=== PATIENT | male | born 1950 | race Caucasian/White ===

== ENCOUNTER 2022-09-16 10:02 | Outpatient (REF) | payer MEDICARE, MEDICAID, SELFPAY ==
[2022-09-16 14:34] LABS: MANUAL DIFF FLAG NO
[2022-09-16 14:39] LABS: Basophils Percent Auto 0.7 % (0-2); Eosinophils Absolute Auto 0.2 X10*3/uL (0.0-0.4); Eosinophils Percent Auto 3.2 % (0-4); Hematocrit 45.1 % (42.0-52.0); Hemoglobin 14.7 g/dl (14.0-18.0); Imm Gran Abs Auto 0.01 X10*3/uL (0.00-0.03); Imm Gran Pct Auto 0.2 % (0.0-0.4); Lymphocytes Absolute Auto 1.6 X10*3/uL (1.2-4.9); Lymphocytes Percent Auto 26.6 % (20-40); Mean Corpuscular HGB Conc 32.6 g/dl (31.0-36.0); Mean Corpuscular Hemoglobin 28.9 pg (27.0-33.0); Mean Corpuscular Volume 88.8 fL (80.0-98.0); Mean Platelet Volume 10.9 fL (9.4-12.4); Monocytes Absolute Auto 0.5 X10*3/uL (0.1-1.2); Monocytes Percent Auto 8.4 % (2-11); Neutrophils Absolute Auto 3.6 x10*3/uL (2.0-8.3); Neutrophils Percent Auto 60.9 % (45-73); Platelet Count 223 X10*3/uL (160-400); Red Blood Count 5.08 X10*6/uL (4.60-5.80); Red Cell Distribution Width 12.6 % (11.0-16.0); White Blood Count 5.9 X10*3/uL (4.8-10.8)
[2022-09-16 15:19] LABS: Anion Gap 14 (12-20); Blood Urea Nitrogen 16 mg/dL (9-16); Calcium 9.3 mg/dL (8.4-10.2); Carbon Dioxide 25 mmol/L (22-29); Chloride 105 mmol/L (96-108); Estimated Glomerular Filt Rate 55; Glucose Fasting 80 mg/dL (60-99); Potassium 4.6 mmol/L (3.3-5.1); Sodium 139 mmol/L (135-145)
[2022-09-16 15:54] LABS: Prostate Specific Antigen 0.45 ng/mL (<0.05-4.0)
== END 2022-09-16 10:03 | disposition home or self-care (01) ==
LOC: HO.CHCLDS 10:02
PROVIDERS: Internal Medicine; Visit Provider Internal Medicine
DX: Z12.5 Encounter for screening for malignant neoplasm of prostate (principal); N52.1 Erectile dysfunction due to diseases classified elsewhere; I10 Essential (primary) hypertension
CPT/HCPCS: 36415; 80048; 84153; 85025

== ENCOUNTER 2023-02-12 12:16 | Outpatient (REF) | payer MEDICARE, MEDICAID, SELFPAY ==
[2023-02-12 14:45] LABS: Appearance Urine Clear; Color Urine Yellow; Glucose Urine UA Negative (Negative); Leukocyte Esterase Urine Negative (Negative); Nitrite Urine Negative (Negative); PH 6.5 (5.0-9.0); Specific Gravity - Urine 1.015 (1.005-1.025); Urine Blood Negative (Negative); Urine Ketones Negative (Negative); Urine Protein Negative (Neg-Trace)
== END 2023-02-12 12:17 | disposition home or self-care (01) ==
LOC: CF 12:16
PROVIDERS: Visit Provider Internal Medicine
DX: N39.498 Other specified urinary incontinence (principal)
CPT/HCPCS: 81003

== ENCOUNTER 2023-05-20 09:18 | Outpatient (REF) | payer MEDICARE, MEDICAID, SELFPAY ==
[2023-05-20 13:29] LABS: Alanine Aminotransferase 27 U/L (0-40); Albumin Level 4.2 g/dL (3.5-5.0); Alkaline Phosphatase 75 U/L (39-117); Anion Gap 12 (12-20); Aspartate Amino Transferase 26 U/L (5-37); Bilirubin Direct 0.2 mg/dL (0.0-0.5); Bilirubin Total 0.6 mg/dL (0.0-1.0); Blood Urea Nitrogen 19 mg/dL (9-16); Calcium 9.3 mg/dL (8.4-10.2); Carbon Dioxide 27 mmol/L (22-29); Chloride 106 mmol/L (96-108); Cholesterol 192 mg/dL (<200); Estimated Glomerular Filt Rate 58; Glucose Random 102 mg/dL (60-115); HDL Cholesterol 51 mg/dL (>40); LDL Cholesterol Calculated 110 mg/dL (<100); Potassium 4.5 mmol/L (3.3-5.1); Sodium 140 mmol/L (135-145); Triglycerides 157 mg/dL (<150)
[2023-05-20 13:45] LABS: TSH reflex Free T4 2.01 uIU/mL (0.32-4.0)
[2023-05-21 08:28] LABS: ~HepC Num1 0.08 S/CO (0.00-0.79); ~Hepatitis C Antibody Nonreactive (Nonreactive)
== END 2023-05-20 09:19 | disposition home or self-care (01) ==
LOC: HO.CHCLDS 09:18
PROVIDERS: Visit Provider Internal Medicine
DX: I10 Essential (primary) hypertension (principal); M15.8 Other polyosteoarthritis; E78.49 Other hyperlipidemia
CPT/HCPCS: 36415; 80048; 80061; 80076; 84443; 86803

== ENCOUNTER 2023-06-16 11:43 | Outpatient (REF) | payer MEDICARE, MEDICAID, SELFPAY ==
[2023-06-16 14:28] LABS: MANUAL DIFF FLAG NO
[2023-06-16 14:41] LABS: Basophils Percent Auto 0.6 % (0-2); Eosinophils Absolute Auto 0.1 X10*3/uL (0.0-0.4); Eosinophils Percent Auto 2.8 % (0-4); Hematocrit 36.8 % (42.0-52.0); Hemoglobin 12.5 g/dl (14.0-18.0); Imm Gran Abs Auto 0.02 X10*3/uL (0.00-0.03); Imm Gran Pct Auto 0.4 % (0.0-0.4); Lymphocytes Absolute Auto 1.7 X10*3/uL (1.2-4.9); Lymphocytes Percent Auto 34.9 % (20-40); Mean Corpuscular Hemoglobin 29.9 pg (27.0-33.0); Mean Platelet Volume 10.6 fL (9.4-12.4); Monocytes Absolute Auto 0.5 X10*3/uL (0.1-1.2); Monocytes Percent Auto 9.5 % (2-11); Neutrophils Absolute Auto 2.6 x10*3/uL (2.0-8.3); Neutrophils Percent Auto 51.8 % (45-73); Platelet Count 197 X10*3/uL (160-400); Red Blood Count 4.18 X10*6/uL (4.60-5.80); Red Cell Distribution Width 12.3 % (11.0-16.0)
[2023-06-16 14:50] LABS: INTERNATIONAL NORM RATIO 0.9 (0.9-1.1); Prothrombin Time 10.4 SEC (11.1-13.3)
[2023-06-16 14:53] LABS: Partial Thromboplastin Time 26.5 SEC (26.0-36.8)
[2023-06-16 16:48] LABS: Anion Gap 12 (12-20); Blood Urea Nitrogen 17 mg/dL (9-16); Calcium 9.2 mg/dL (8.4-10.2); Carbon Dioxide 25 mmol/L (22-29); Chloride 106 mmol/L (96-108); Estimated Glomerular Filt Rate > 60; Glucose Random 100 mg/dL (60-115); Potassium 4.4 mmol/L (3.3-5.1); Sodium 139 mmol/L (135-145)
[2023-06-16 16:50] LABS: TSH reflex Free T4 1.09 uIU/mL (0.32-4.0)
== END 2023-06-16 11:44 | disposition home or self-care (01) ==
LOC: HO.CHCLDS 11:43
PROVIDERS: Visit Provider Internal Medicine
DX: Z01.818 Encounter for other preprocedural examination (principal); I10 Essential (primary) hypertension
CPT/HCPCS: 36415; 80048; 84443; 85025; 85610; 85730

== ENCOUNTER 2023-12-01 11:21 | Outpatient (REF) | payer MEDICARE, MEDICAID, SELFPAY ==
[2023-12-01 14:23] LABS: MANUAL DIFF FLAG NO
[2023-12-01 14:32] LABS: Basophils Percent Auto 0.6 % (0-2); Eosinophils Absolute Auto 0.1 X10*3/uL (0.0-0.4); Eosinophils Percent Auto 1.9 % (0-4); Hematocrit 39.6 % (42.0-52.0); Imm Gran Abs Auto 0.02 X10*3/uL (0.00-0.03); Imm Gran Pct Auto 0.4 % (0.0-0.4); Lymphocytes Absolute Auto 1.2 X10*3/uL (1.2-4.9); Lymphocytes Percent Auto 23.2 % (20-40); Mean Corpuscular HGB Conc 32.8 g/dl (31.0-36.0); Mean Corpuscular Hemoglobin 28.6 pg (27.0-33.0); Mean Platelet Volume 10.9 fL (9.4-12.4); Monocytes Absolute Auto 0.4 X10*3/uL (0.1-1.2); Monocytes Percent Auto 7.2 % (2-11); Neutrophils Absolute Auto 3.5 x10*3/uL (2.0-8.3); Neutrophils Percent Auto 66.7 % (45-73); Platelet Count 216 X10*3/uL (160-400); Red Blood Count 4.55 X10*6/uL (4.60-5.80); Red Cell Distribution Width 12.8 % (11.0-16.0); White Blood Count 5.3 X10*3/uL (4.8-10.8)
[2023-12-01 15:20] LABS: Prostate Specific Antigen 0.22 ng/mL (<0.05-4.0)
[2023-12-06 15:29] LABS: Testosterone, Total 171 ng/dL (250-1100)
== END 2023-12-01 11:22 | disposition home or self-care (01) ==
LOC: HO.CHCLDS 11:21
PROVIDERS: Visit Provider Internal Medicine
DX: Z12.5 Encounter for screening for malignant neoplasm of prostate (principal); M70.62 Trochanteric bursitis, left hip; N52.1 Erectile dysfunction due to diseases classified elsewhere
CPT/HCPCS: 36415; 84153; 84403; 85025

== ENCOUNTER 2024-03-17 11:04 | Outpatient (REF) | payer MEDICARE, MEDICAID, SELFPAY ==
[2024-03-21 18:23] LABS: Testosterone, Total 334 ng/dL (250-1100)
== END 2024-03-17 11:05 | disposition home or self-care (01) ==
LOC: HO.CHCLDS 11:04
PROVIDERS: Visit Provider Internal Medicine
DX: N52.9 Male erectile dysfunction, unspecified (principal); N52.1 Erectile dysfunction due to diseases classified elsewhere
CPT/HCPCS: 36415; 84403

== ENCOUNTER 2024-04-01 09:24 | Outpatient (REF) | payer MEDICARE, MEDICAID, SELFPAY ==
--- OUTSIDE RECORDS SUMMARY | 2024-04-01 09:51 | XMS_ITS | Encounter Summary ---
Author Organization [employer] Address [address] [place] [address] Care Team Providers Care Sheet Tailer Name Role Phone Camille Patel MD Primary Care Provider +1- [phone] Reason for Visit * Reason Onset Date Comments requesting a call 09/12/2022 Encounter Details Date Type Department Care Team ([facility] Contact Info) Description 09/12/2022 Telephone [facility] CHC MED & PEDS [address] [place] [address] Camille Patel MD [address] [place] [address] requesting a call Social History Tobacco Use Types Packs/Day Years Used Date Smoking Tobacco: Never Passive Smoke Exposure: Never Smokeless Tobacco: Never Alcohol Use Standard Drinks/Week Comments Defer 0 (1 standard drink = 0.6 oz pur e alcohol) Depression Answer Date Recorded Patient Health Questionnaire-9 Score 4 04/01/2022 Depression Answer Date Recorded Patient Health Questionnaire-2 Score 0 04/01/2022 Sex and Gender Information Value Date Recorded Sex Assigned at Male 12/30/2021 10:21 AM EDT Legal Sex Male 10:21 AM EDT Gender Identity Male 12/30/2021 10:21 AM EDT Sexual Orientation Straight 12/30/2021 10 :21 AM EDT COVID-19 Exposure Response Date Recorded In the last 10 days, have yo u been in contact with someone who was confirmed or suspected to have Coronavirus/COVID-19? No / Unsure 08/27/2022 10:45 AM EDT documented as of this encounter Miscellaneous Notes * Telephone Encounter - Magdiel Pisano RN - 09/16/2022 9:24 AM EDT Spoke with pt regarding below. States he received a letter regarding the ordered MRI. Per pt, has until November 02 to complete the MRI. Per pt, scheduled for procedure a on 09/22/22. States he will be wearing a brace x3 weeks. Per pt, will complete the MRI after the brace is taken off. Pt states he wanted to make provider aware just in case he is not able to be scheduled in for the MRI prior to November 02. Pt is [place] [facility] [place] Will forward to appropriate team for f/u. * Telephone Encounter - Cherelle Melendez - 09/15/2022 2:20 PM EDT Tc from pt requesting a call back in regards to MRI order, states will be having shoulder surgery 09/22/22 and will be having a brace for 3 weeks and won't be able to get MRI done , pt has some further questions or concerns. Please contact at [phone] * Telephone Encounter - Darlene Pisano - 09/12/2022 1:29 PM EDT Tc from pt requesting a call in regards to a neck MRI PCP ordered. Please contact pt at [phone] documented in this encounter Plan of Treatment Upcoming Encounters Date Type Department Care Team (Late st Contact Info) Description 04/19/2024 8:00 AM EST Office Visit [facility] ADULT DENTAL [address] [place] [address] Jourdan Patel 05/18/2024 11:00 AM EDT Clinical Support [facility] MED & PEDS [address] [place] [address] Deya Barlow RN 505 [place] [address] documented as of this encounter Visit Diagnoses Not on filedocumented in this encounter Additional Health Concerns Assessment Noted Time PHQ-9 Depression Total Score: 4 04/01/19 23 11:39 AM EST documented as of this encounter Care Teams Sheet Tailer Relationship Specialty Start Date End Date Camille Patel MD [address] [facility] [place] Romo [address] PCP - General Internal Medicine 03/02/18 documented as of this encounter
--- OUTSIDE RECORDS SUMMARY | 2024-04-01 09:52 | XMS_ITS | Encounter Summary ---
Author Organization [employer] Address [address] [place] [address] Care Team Providers Care Batchmaker Name Role Phone Camille Patel MD Primary Care Provider +1- [phone] Encounter Details Date Type Department Care Team ([facility] Contact Info) Description 10/27/2022 Orders Only [facility] MED & PEDS [address] [place] [address] Camille Patel MD [address] [place] [address] Cervical radiculopathy (Primary Dx) Social History Tobacco Use Types Packs/Day Years [...] Orientation Straight 12/30/2021 10 :21 AM EDT documented as of this encounter Plan of Treatment Upcoming Encounters Date Type Department Care Team ([facility] Contact Info) Description 04/19/2024 8:00 AM EST Office Visit [facility] ADULT [facility] [address] [place], [place] [phone] Jourdan Patel 05/18/2024 11:00 AM EDT Clinical Support [facility] MED & PEDS [address] [place] [address] Deya Barlow, RN [address] [place] [address] documented as of this encounter Visit Diagnoses Diagnosis Cervical radiculopathy- Primary Brachial neuritis or radiculitis nos documented in this encounter Additional Health Concerns Assessment Noted Time PHQ-9 Depression Total Score: 4 04/01/19 23 11:39 AM EST documented as of this encounter Care Teams Batchmaker Relationship Specialty Start Date End Date Camille Patel MD [address] [place] [address] PCP - General Internal Medicine 03/02/18 documented as of this encounter
--- OUTSIDE RECORDS SUMMARY | 2024-04-01 09:52 | XMS_ITS | Encounter Summary ---
Author Organization [employer] Address [address] [place] [address] Care Team Providers Care Director Peoplesoft Name Role Phone Camille Patel MD Primary Care Provider +1- [phone] Reason for Visit * Reason Comments Med Refill Encounter Details Date Type Department Care Team ([facility] st Contact Info) Description 03/10/2024 Refill [facility] CHC MED & PEDS [address] [place], [place] [phone] Camille Patel MD [address] [place] [address] Vitamin B12 deficiency Social History Tobacco Use Types Packs/Day Years Used Date Smoking Tobacco: Never Passive Smoke Exposure: Never Smokeless Tobacco: Never Alcohol Use Standard Drinks/Week Comments Defer 0 (1 standard drink = 0.6 oz pur e alcohol) Depression Answer Date Recorded Patient Health Questionnaire-9 Score 4 04/01/2022 Housing Stability Answer Date Recorded What is your housing situation today? I have isaias justin 12/29/[address] you li ve. Do you have problems with any of the following? None of the above 12/29/2022 Food Insecurity Answer Date Recorded Within the past 12 months, y ou worried that your food would run out before you got money to buy more: Never True 12/29/2022 Within the past 12 months,th e food you bought just didn't last and you didn't have enough money to get more: Never True Transportation Answer Date Recorded In the past 12 months, has l ack of transportation kept you from medical appts, meetings, work or from getting things needed for daily living? No 12/29/2022 Utilities Answer Date Recorded In the past 12 months, has t he electric, gas, oil or water company threatened to shut off services in your home? No 12/29/2022 Depression Answer Date Recorded Patient Health Questionnaire-2 [...] Description 04/19/2024 8:00 AM EST Office Visit [facility] [address] [place] [address] Jourdan Patel 05/18/2024 11:00 AM EDT Clinical Support [facility] MED & PEDS [address] [place] [address] Deya Barlow, COREEN [address] [place] [address] documented as of this encounter Visit Diagnoses Diagnosis Vitamin B12 deficiency Other B-complex deficiencies documented in this encounter Additional Health Concerns Assessment Noted Time PHQ-9 Depression Total Score: 4 04/01/19 23 11:39 AM EST documented as of this encounter Care Teams Director Peoplesoft Relationship Specialty Start Date End Date Camille Patel MD [address] [place] [address] PCP - General Internal Medicine 03/02/18 documented as of this encounter
--- OUTSIDE RECORDS SUMMARY | 2024-04-01 09:52 | XMS_ITS | Encounter Summary ---
Author Organization [employer] Address [address] [place] [address] [address] [place] [address] Care Team Providers Care Circle Cutting Saw Operator Name Role Phone Camille Patel MD Primary Care Provider +1- [phone] Reason for Visit * Reason Onset Date Comments Medication Question 01/21/2024 Encounter Details Date Type Department Care Team ([facility] Contact Info) Description 01/21/2024 Telephone [facility] MED & PEDS [address] [place], [place] [phone] Camille Patel MD [address] [place] [address] Medication Question Social History Tobacco Use Types Packs/Day Years [...] encounter Miscellaneous Notes * Telephone Encounter - Lovely Vu RN - 01/25/2024 3:00 PM EST Noted. * Telephone Encounter - Camille Patel MD - 01/22/2024 11:55 AM EST The new script was sent. Mr Shay Field has a standing order to recheck his testosterone level 6 weeks after starting the new dose. * Telephone Encounter - Alaina Montoya - 01/21/2024 9:51 AM EST Tc from pt calling to inform on last visit with pcp medication Testim 50 MG/5GM (1%) gel was going to be changed to 100mg . Please call pt to clarify. documented in this encounter Plan of Treatment Upcoming Encounters Date Type Department Care Team (Late st Contact Info) Description 04/19/2024 8:00 AM EST Office Visit [facility] ADULT DENT[facility] [address] [place] [address] Jourdan Patel 05/18/2024 11:00 AM EDT Clinical Support [facility] MED & PEDS [address] [place] [address] Deya Barlow, COREEN [address] [place] [address] documented as of this encounter Visit Diagnoses Not on filedocumented in this encounter Additional Health Concerns Assessment Noted Time PHQ-9 Depression Total Score: 4 04/01/19 23 11:39 AM EST documented as of this encounter Care Teams Circle Cutting Saw Operator Relationship Specialty Start Date End Date Camille Patel MD [address] [place] [address] PCP - General Internal Medicine 03/02/18 documented as of this encounter
--- OUTSIDE RECORDS SUMMARY | 2024-04-01 09:52 | XMS_ITS | Encounter Summary ---
Author Organization [employer] Address [address] [place] [address] [place] [address] Care Team Providers Care Tool And Die Inspector Name Role Phone Camille Patel MD Primary Care Provider +1- [phone] Reason for Visit * Reason Onset Date Comments medication 06/13/2022 Encounter Details Date Type Department Care Team ([facility] st Contact Info) Description 06/13/2022 Telephone [facility] [address] [place] [address] Neymar Guerrero, DDS [address] [place] [address] medication Social History Tobacco Use Types Packs/Day Years [...] encounter Miscellaneous Notes * Telephone Encounter - Katherine Pedraza - 06/13/2022 9:34 AM EDT Patient called in stating that his chlyndamaycin regimen for pre med before dental was changed to azithromycin and he felt very crampy after taking it. He said he tookit due to a flare up in his gums. He states he has kidney diseases and felt cramping in his back and nausea and feels that it was the medication. He would like his pre med changed back to the chlydamyacin. He says he normally takes 2 300mg pills 20 minutes apart prior to dental work. DR documented in this encounter Plan of Treatment Upcoming Encounters Date Type Department Care Team (Late st Contact Info) Description 04/19/2024 8:00 AM EST Office Visit [facility] ADULT [facility] [address] [place] [address] Jourdan Patel 05/18/2024 11:00 AM EDT Clinical Support [facility] MED & PEDS [address] [place] [address] Deya Barlow, COREEN [address] [place] [address] documented as of this encounter Visit Diagnoses Not on filedocumented in this encounter Additional Health Concerns Assessment Noted Time PHQ-9 Depression Total Score: 4 04/01/19 23 11:39 AM EST documented as of this encounter Care Teams Tool And Die Inspector Relationship Specialty Start Date End Date Camille Patel MD [address] [place] [address] PCP - General Internal Medicine 03/02/18 documented as of this encounter
--- OUTSIDE RECORDS SUMMARY | 2024-04-01 09:52 | XMS_ITS | Encounter Summary ---
Author Organization [employer] Address [address] [place] [address] Care Team Providers Care Costume Specialist Name Role Phone Camille Patel MD Primary Care Provider +1- [phone] Reason for Visit * Reason Comments Med Refill Encounter Details Date Type Department Care Team ([facility] st Contact Info) Description 03/24/2024 Refill [facility] CHC MED & PEDS [address] [place], [place] [phone] Camille Patel MD [address] [place] [address] Low vitamin D level Social History Tobacco Use Types Packs/Day Years Used Date Smoking Tobacco: Never Passive Smoke Exposure: Never Smokeless Tobacco: Never Alcohol Use Standard Drinks/Week Comments Defer 0 (1 standard drink = 0.6 oz pur e alcohol) Depression Answer Date Recorded Patient Health Questionnaire-9 Score 3 03/23/2024 Patient Health Questionnaire-9 Score 3 03/23/2024 Last PHQ-9: Questionnaire Data Not on file 0 03/23/2024 Housing Stability Answer Date Recorded What is your housing situation today? I have isaias justin 03/23/[address] you li ve. Do you have problems with any of the following? None of the above 03/23/2024 Food Insecurity Answer Date Recorded Within the past 12 months, y ou worried that your food would run out before you got money to buy more: Never True 03/23/2024 Within the past 12 months,th e food you bought just didn't last and you didn't have enough money to get more: Never True Transportation Answer Date Recorded In the past 12 months, has l ack of transportation kept you from medical appts, meetings, work or from getting things needed for daily living? No 03/23/2024 Utilities Answer Date Recorded In the past 12 months, has t he electric, gas, oil or water company threatened to shut off services in your home? No 03/23/2024 Depression Answer Date Recorded Patient Health Questionnaire-2 Score 0 03/23/2024 Internet Access Answer Date Recorded Internet Access Q1 Yes 03/23/2024 Internet Access Q2 Not on file 03/23/2024 Sex and Gender Information Value Date Recorded Sex Assigned at Male 12/30/2021 10:21 AM EDT Legal Sex Male 10:21 AM EDT Gender Identity Male 12/30/2021 10:21 AM EDT Sexual Orientation Straight 12/30/2021 10 :21 AM EDT documented as of this encounter Plan of Treatment Upcoming Encounters Date Type Department Care Team (Late st Contact Info) Description 04/19/2024 8:00 AM EST Office Visit [facility] ADULT DENTAL [address] [place] [address] Jourdan Patel 05/18/2024 11:00 AM EDT Clinical Support [facility] MED & PEDS [address] [place] [address] Deya Barlow, COREEN [address] [place] [address] documented as of this encounter Visit Diagnoses Diagnosis Low vitamin D level documented in this encounter Additional Health Concerns Assessment Noted Time PHQ-9 Depression Total Score: 3 03/23/19 25 1:34 PM EST documented as of this encounter Care Teams Costume Specialist Relationship Specialty Start Date End Date Camille Patel MD [address] [place] [address] PCP - General Internal Medicine 03/02/18 documented as of this encounter
--- OUTSIDE RECORDS SUMMARY | 2024-04-01 09:52 | XMS_ITS | Encounter Summary ---
Author Organization [employer] Address [address] [place] [address] [address] [place] [address] Care Team Providers Care Manager Books Name Role Phone Camille Patel MD Primary Care Provider +1- [phone] Encounter Details Date Type Department Care Team (Late st Contact Info) Description 03/13/2022 Orders Only [facility] MED & PEDS [address] [place] [address] Shania Johnson LPN Social History Tobacco Use Types Packs/Day Years Used Date Smoking Tobacco: Never Passive Smoke Exposure: Never Smokeless Tobacco: Never Alcohol Use Standard Drinks/Week Comments Defer 0 (1 standard drink = 0.6 oz pur e alcohol) Sex and Gender Information Value Date Recorded [...] suspected to have Coronavirus/COVID-19? No / Unsure 03/12/2022 9:05 AM EST documented as of this encounter Plan of Treatment Upcoming Encounters Date Type Department Care Team (Late st Contact Info) Description 04/19/2024 8:00 AM EST Office Visit [facility] ADULT DENTAL [address] [place] [address] Jourdan Patel 05/18/2024 11:00 AM EDT Clinical Support [facility] MED & PEDS [address] [place] [address] Deya Barlow RN [address] [place] [address] documented as of this encounter Procedures Procedure Name Priority Date/Time Associated Diagnosis Comments BASIC METABOLIC PANEL, FASTING Routine 09/16/2022 10:16 AM EDT CBC WITH AUTO DIFFERENTIAL Routine 09/16/2022 10:16 AM EDT PSA, TOTAL Routine 09/16/2022 10:16 AM EDT documented in this encounter Results * PSA,Total (09/16/2022 10:16 AM EDT) Prostate Specific Antigen 0.45 <0.05 - 4.0 ng/mL [facility] Comment:PSA methodology: Jesus Lazaro i ChemiluminescentMicroparticle Immunoassay (CMIA) 09/16/2022 10:1 6 AM EDT 09/16/2022 2:29 PM EDT [facility] External Provider LAB BLO OD ORDERABLES Final Result [facility] [address] [place] [phone] * Basic Metabolic Panel, Fasting (09/16/2022 10:16 AM EDT) Sodium 139 135 - 145 mmol/L [facility] Potassium 4.6 3.3 - 5.1 mmol/L [facility] Chloride 105 96 - 108 mmol/L [facility] Carbon Dioxide 25 22 - 29 mmol/L [facility] Anion Gap 14 12 - 20 [facility] Urea Nitrogen (BUN) 16 9 - 16 mg/dL [facility] Creatinine, Serum 1.30 0.5 - 1.4 mg/dL [facility] Estimated Glomerular Filt Rate 55 [facility] Comment:NOTE: For -Am erican individuals, multiply the result by 1.210.Chronic Kidney Disease: Estimated GFR < 60 mL/min/[id number] Kidney Disease: Estimated GFR < 15 mL/min/1.73m2 Glucose Fasting 80 60 - 99 mg/dL [facility] Calcium 9.3 8.4 - 10.2 mg/dL [facility] 09/16/2022 10:1 6 AM EDT 09/16/2022 2:29 PM EDT [facility] External Provider LAB BLO OD ORDERABLES Final Result [facility] [address] [place] [address] [phone] * CBC auto differential (09/16/2022 10:16 AM EDT) White Blood Count 5.9 4.8 - 10.8 X10*3/uL [facility] Red Blood Count 5.08 4.60 - 5.80 X10*6/uL [facility] Hemoglobin 14.7 14.0 - 18.0 g/dl [facility] Hematocrit 45.1 42.0 - 52.0 % [facility] Mean Corpuscular Volume 88.8 80.0 - 98.0 fL [facility] Mean Corpuscular Hemoglobin 28.9 27.0 - 33.0 pg [facility] Mean Corpuscular HGB Conc 32.6 31.0 - 36.0 g/dl [facility] Red Cell Distribution Width 12.6 11.0 - 16.0 % [facility] Platelet Count 223 160 - 400 X10*3/uL [facility] Mean Platelet Volume 10.9 9.4 - 12.4 fL [facility] Neutrophils Percent Auto 60.9 45 - 73 % [facility] Imm Gran Pct Auto 0.2 0.0 - 0.4 % [facility] Lymphocytes Percent Auto 26.6 20 - 40 % [facility] Monocytes Percent Auto 8.4 2 - 11 % [facility] Eosinophils Percent Auto 3.2 0 - 4 % [facility] Basophils Percent Auto 0.7 0 - 2 % [facility] NRBC Pct Auto 0.0 0.0 - 0.2 /100WBC [facility] Neutrophils Absolute Auto 3.6 2.0 - 8.3 x10*3/uL [facility] Imm Gran Abs Auto 0.01 0.00 - 0.03 X10*3/uL [facility] Lymphocytes Absolute Auto 1.6 1.2 - 4.9 X10*3/uL [facility] Monocytes Absolute Auto 0.5 0.1 - 1.2 X10*3/uL [facility] Eosinophils Absolute Auto 0.2 0.0 - 0.4 X10*3/uL [facility] Basophils Absolute Auto 0.0 0.0 - 0.2 X10*3/uL [facility] NRBC Abs Auto 0.000 0.0 - 0.012 X10*3/uL [facility] 09/16/2022 10:1 6 AM EDT 09/16/2022 2:29 PM EDT [facility] External Provider LAB BLO OD ORDERABLES Final Result [facility] [address] [place] [address] [phone] documented in this encounter Visit Diagnoses Not on filedocumented in this encounter Care Teams Manager Books Relationship Specialty Start Date End Date Camille Patel MD [address] [place] [address] PCP - General Internal Medicine 03/02/18 documented as of this encounter
--- OUTSIDE RECORDS SUMMARY | 2024-04-01 09:52 | XMS_ITS | Clinical Summary ---
Author Organization [employer] Address [address] [place] [address] 7[address] [place] [address] Care Team Providers Care Cardiopulmonary Supervisor Name Role Phone Camille Patel MD Primary Care Provider [phone]- [phone] Allergies Active Allergy Reactions Criticality Noted Date Comments Amoxicillin Rash Low 03/05/2022 Nsaids Rash Low 10/14/2023 Penicillin G Hives 03/05/2022 Sulfa Antibiotics 03/05/2022 Medications glucose blood ([email or web address].comTouch Ultra) test strip at bed time. 019 Active naloxone (Narcan) 4 mg/0.1 mL nasal spray Administer 0.1 mL into affected nostril(s). 022 Active Sodium Fluoride 1.1 % gelIndications:T ooth caries Apply a thin ribbon of the gel on the tooth brush. [place]hon thoroughly once daily, preferable at bedtime. 112 g 2 023 Active clindamycin (Cleocin) 300 MG capsule Take two capsules one hour before the dental appointment 10 capsule 023 Active omeprazole (PriLOSEC) [address] Alvarez ns:Gastroesophag eal reflux disease without esophagitis Take 1 capsule (40 mg) by mouth before breakfast. Do not crush or chew. 90 capsule 3 024 2024 Active simvastatin (Zocor) 20 MG tabletIndication s:Other hyperlipidemia TAKE ONE TABLET BY MOUTH AT BEDTIME 90 tablet 3 024 Active lisinopril 5 MG tabletIndication s:Benign hypertension TAKE ONE TABLET BY MOUTH EVERY MORNING 90 tablet 3 024 Active BD Integra Syringe 25G X 1 3 ML misc USE TO inject monthly 12 each 11 024 Active Acetaminophen Extra Strength 500 MG tabletIndication s:Neck pain TAKE ONE TABLET BY MOUTH EVERY MORNING 90 tablet 3 024 Active atenolol (Tenormin) 25 MG tabletIndication s:Benign hypertension TAKE ONE TABLET BY MOUTH EVERY MORNING 90 tablet 3 024 Active clindamycin (Cleocin) 300 MG capsule Take 2 tablets (600mg) 1 hour before dental appt 8 capsule 024 Active Ascorbic Acid (vitamin C) 500 MG tablet TAKE ONE TABLET DAILY 90 tablet 1 024 Active magnesium oxide (Mag-Ox) 400 MG tablet TAKE ONE TABLET EVERY DAY 90 tablet 1 024 Active Diclofenac Sodium 1 % gelIndications:T rochanteric bursitis of left hip APPLY 2 GRAM'S TO AFFECTED AREA(s) THREE TIMES DAILY NEEDED 100 g 1 024 Active testosterone (Testim) 50 MG/5GM (1%) gelIndications:E rectile dysfunction due to diseases classified elsewhere Place 2 packets (10 g) on the skin Once per day. 300 g 024 Active Testim 50 MG/5GM (1%) gelIndications:E rectile dysfunction due to diseases classified elsewhere apply contents of TWO packets TO SKIN ONCE DAILY 300 g 025 Active cyanocobalamin (Vitamin B-12) 1000 MCG/ML injectionIndicat ions:Vitamin B12 deficiency INJECT ONE ML INTRAMUSCULARLY EVERY MONTH 1 mL 11 025 Active oxyCODONE-acetam inophen (Percocet) 7.5-325 MG tabletIndication s:Chronic pain syndrome TAKE ONE TABLET BY MOUTH EVERY EIGHT HOURS NEEDED FOR SEVERE PAIN 84 tablet 025 Active vardenafil (Levitra) 20 MG tabletIndication s:Erectile dysfunction due to diseases classified elsewhere Take 1 tablet (20 mg) by mouth if needed each day for erectile dysfunction for up to 30 doses. 30 tablet 025 Active cholecalciferol VITAMIN D (Vitamin D-3) 50 MCG (2000 UT) tabletIndication s:Low vitamin D level TAKE ONE TABLET BY MOUTH EVERY DAY 90 tablet 3 025 Active vardenafil (Levitra) 20 MG tabletIndication s:Erectile dysfunction due to diseases classified elsewhere Take 1 tablet (20 mg) by mouth if needed each day for erectile dysfunction for up to 30 doses. 30 tablet 3 023 2024 Discontinued( Reorder (will not trigger notification to Pharmacy)) cholecalciferol (Vitamin D-3) 50 MCG (2000 UT) tabletIndication s:Low vitamin D level TAKE ONE TABLET BY MOUTH EVERY DAY 90 tablet 3 024 2024 Discontinued cyanocobalamin (Vitamin B-12) 1000 MCG/ML injectionIndicat ions:Vitamin B12 deficiency INJECT ONE ML INTRAMUSCULARLY EVERY MONTH 1 mL 11 024 2024 Discontinued Testim 50 MG/5GM (1%) gelIndications:E rectile dysfunction due to diseases classified elsewhere APPLY THE CONTENTS OF ONE PACKET TOPICALLY DAILY DIRECTED 150 g 024 2024 Discontinued oxyCODONE-acetam inophen (Percocet) 7.5-325 MG tabletIndication s:Chronic pain syndrome Take 1 tablet by mouth every 8 (eight) hours if needed for severe pain. 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 Benign hypertension 10/19/2020 Joints gout affected 10/19/2020 Chronic kidney disease 04/14/2017 Erectile dysfunction 04/14/2017 Gout 04/14/2017 Osteoarthritis of multiple joints 06/01/2014 Encounters Date Type Department Care Team Description 03/30/2024 Telephone [facility] [address] [place] [address] Camille Patel MD 03/24/2024 Refill [facility] PED[facility] [address] [place], [place] [phone] Camille Patel MD Low vitamin D level 03/23/2024 10:30 AM EST Office Visit [facility]ED[facility] [address] [place], [place] [phone] Camille Patel MD Benign hypertension (Primary Dx); Other osteoarthritis involving multiple joints; Erectile dysfunction due to diseases classified elsewhere 03/23/2024 Travel 03/22/2024 Refill [facility] [address] [place] [address] Camille Patel MD Chronic pain syndrome 03/10/2024 Refill [facility] [address] [place] [address] Camille Patel MD Vitamin B12 deficiency 03/07/2024 Refill [facility] [address] [place] [address] Camille Patel MD Erectile dysfunction due to diseases classified elsewhere 02/22/2024 Refill [facility] [address] [place] [address] Camille Patel MD Chronic pain syndrome 02/18/2024 11:00 AM EST Clinical Support [facility] [address] [place] [address] Deya Barlow RN Chronic pain syndrome 02/18/2024 Travel 01/26/2024 Refill [facility] [address] [place] [address] Camille Patel MD Chronic pain syndrome 01/22/2024 Orders Only [facility] [address] [place] [address] Camille Patel MD Erectile dysfunction due to diseases classified elsewhere (Primary Dx) 01/22/2024 Telephone [facility] [address] [place] [address] Camille Patel MD Med Refill 01/21/2024 Telephone [facility] [address] [place] [address] Camille Patel MD Medication Question from Last 3 Months Immunizations Name Administration Dates Next Due INFLUENZA VACCINE QUADRIVALE NT RECOMBINANT PRESERVATIVE FREE RIV4 12/23/2019 Influenza High-dose Quadrivalent Preservative Fr ee 12/25/2021 Influenza Quadrivalent Adjuvanted 12/05/2020 Influenza injectable quadrivalent preservative f ree 11/20/2022 Influenza, High Dose Seasonal, Preservative Free 12/17/2023,02/09/2019 Moderna Covid-19 Vaccine 12+ 06/06/2020 Pneumococcal Conjugate PCV 13 01/08/2018 Pneumococcal Polysaccharide PPSV23 02/09/2019 Tdap 02/14/2016 Zoster, live 02/14/2016 Social History Tobacco Use Types Packs/Day Years Used Date Smoking Tobacco: Never Passive Smoke Exposure: Never Smokeless Tobacco: Never Tobacco Cessation:Counseling Given: Not Answered Alcohol Use Standard Drinks/Week Comments Defer 0 [...] Orientation Straight 12/30/2021 10 :21 AM EDT Last Filed Vital Signs Vital Sign Reading Time Taken Comments Blood Pressure 137/71 03/23/2024 10:22 AM EST Pulse 61 03/23/2024 10:22 AM EST Temperature 36.7 ??C (98 ??F) 03/23/2024 10:22 AM EST Respiratory Rate 20 03/23/2024 10:22 AM EST Oxygen Saturation 98% 03/23/2024 10:22 AM EST Inhaled Oxygen Concentration - - Weight 88 kg (194 lb) 03/23/2024 10:22 AM EST Height 170.2 cm (5' 7 ) 03/23/2024 10:22 AM EST Body Mass Index 30.38 03/23/2024 10:22 AM EST Plan of Treatment Upcoming Encounters Date Type Department Care Team (Late st Contact Info) Description 04/19/2024 8:00 AM EST Office Visit [facility] ADULT DENTAL [address] [place] [address] Jourdan Patel 05/18/2024 11:00 AM EDT Clinical Support [facility] [address] [place] [address] Deya Barlow, RN [address] [place] [address] Health Maintenance Due Date Last Done Comments CT Colonography 1952 Colonoscopy 1952 FIT 1952 FOBT 1952 Sigmoidoscopy 1952 Zoster Vaccines (2 of 3) 04/10/2016 02/14/2016 Dental Oral Exam 2024 10/14/2023, 05/08/2023 Dental Prophylaxis 2024 10/14/2023, 0 05/08/2023, 03/12/2022 Dental X-Ray: Bitewings 10/14/2024 10/14/2023, 05/07 COVID-19 Vaccine ( season) 2024 06/06/2020, 05/09/2020 Postponed from 11/01/2023 (Patient Refused) Alcohol/Substance Use Screening 03/23/2025 03/23/2024 Depression Screening 03/23/2025 03/23/2024, 03/23/19 25 SDOH Screening 03/23/2025 03/23/2024 Tobacco Screening 03/23/2025 03/23/2024 Dental X-Ray: Full Mouth 05/08/2026 05/08/2023 Colorectal Cancer Screening 05/29/2026 FIT DNA/Cologuard 05/29/2026 05/30/2023 RSV Patients and Patients Aged 60 years or older (1 - 1-dose 75+ series) 2027 Lipid Panel 05/19/2028 05/20/2023, 11/30, 11/20/2020, Additional history exists DTaP/Tdap/Td Vaccines (3 - Td or Tdap) 06/16/2032 06/16/2022, 02/14/2016 Pneumococcal Vaccine: 50+ Years Completed 02/09/2019, 01/08/2018 Hepatitis C Screening Completed 05/20/2023 Influenza Vaccine Completed 12/17/2023, , 12/25/2021, Additional history exists HIB Vaccines Aged Out No longer eligi ble based on patient's age to complete this topic HPV Vaccines Aged Out No longer eligi ble based on patient's age to complete this topic Hepatitis A Vaccines Aged Out No long er eligible based on patient's age to complete this topic Hepatitis B Vaccines Aged Out No long er eligible based on patient's age to complete this topic IPV Vaccines Aged Out No longer eligi ble based on patient's age to complete this topic Meningococcal Vaccine Aged Out No uriel jillian eligible based on patient's age to complete this topic RSV under 20 months Aged Out No longe r eligible based on patient's age to complete this topic Rotavirus Vaccines Aged Out No longer eligible based on patient's age to complete this topic Procedures Procedure Name Priority Date/Time Associated Diagnosis Comments TESTOSTERONE, TOTAL, MALES (ADULT), IA Routine 03/17/2024 11:03 AM EST Erectile dysfunction due to diseases classified elsewhere POCT DAV-14 URINE DRUG SCREEN Routine 02/18/2024 11:11 AM EST Chronic pain syndrome PROPHYLAXIS - ADULT Routine 10/14/2023 1 1:00 AM EDT BITEWING - SINGLE RADIOGRAPHIC IMAGE Routine 10/14/2023 11:00 AM EDT PERIODIC ORAL EVALUATION - ESTABLISHED PATIENT Routine 10/14/2023 11:00 AM EDT LAB COLOGUARD?? COLON CANCER SCREEN Routine 05/30/2023 12:00 AM EDT Screening for colon cancer HEPATITIS C ANTIBODY Routine 05/20/2023 9:22 AM EDT Benign hypertension Other osteoarthritis involving multiple joints Other hyperlipidemia Screening for colon cancer LIPID PANEL, STANDARD Routine 05/20/2023 9:22 AM EDT Benign hypertension Other osteoarthritis involving multiple joints Other hyperlipidemia Screening for colon cancer DIAGNOSTIC - DIAGNOSTIC IMAGING - INTRAORAL - COMPREHENSIVE SERIES OF RADIOGRAPHIC IMAGES Routine 05/08/2023 2:00 PM EST from Last 3 Months or Most Recently Relevant to Health Maintenance Results * Testosterone, Total, males (Adult), IA (03/17/2024 11:03 AM EST) Testosterone, Total 334 250 - 1100 ng/dL [facility] Comment:Men with clinically significant hypogonadalsymptoms and testosterone values repeatedly inthe range of the 200-300 ng/dL or less, maybenefit from testosterone treatment afteradequate risk and benefits counseling.For additional information, please refer tohttp://education.[employer].StayTuned/faq/[email or web address](This link is being provided for informational/educational purposes only.)This test was developed and its analytical performancecharacteristics have been determined by [employer] [place], [place]. It hasnot been cleared or approved by the U.S. Food and DrugAdministration. This assay has been validated pursuantto the CLIA regulations and is used for clinicalpurposes.THIS TEST WAS PERFORMED AT:[id number] [place] [id number] BAUTISTA MD,PHD Blood Venous blood specimen / Unknown 03/17/2024 11:03 AM EST 03/17/2024 2:00 PM EST us Camille Patel MD LAB BLOOD ORDERABLES Final Result [facility] [address] [place] [address] [phone] * POCT DAV-14 Urine Drug Screen (02/18/2024 11:11 AM EST) Oxycodone Screen, Urine Positive Urine Urine specimen obtained by clean catch procedure / Unknown 02/18/2024 11:11 AM EST Narrative Deya Barlow RN - 02/18/2024 11:11 AM EST Lot# [id number] Exp: 02-05-25 us Camille Patel MD POINT OF CARE TEST ENTER/ED IT ORDERABLES Final Result * Cologuard?? colon cancer screening (05/30/2023 12:00 AM EDT) Cologuard Result Negative Negative 06/06/19 1:09 AM EDT [employer] (CLIA #:[id number]) Comment: NEGATIVE TEST RESULT. A negative Cologuard result indicates a low likelihood that a colorectal cancer (CRC) or advanced adenoma (adenomatous polyps with more advanced pre-malignant features) ??is present. The chance that a person with a negative Cologuard test has a colorectal cancer is less than 1 in 1500 (negative predictive value >99.9%) or has an ??advanced adenoma is less than ??5.3% (negative predictive value 94.7%). These data are based on a prospective cross-sectional study of 10,000 individuals at average risk for colorectal cancer who were screened with both Cologuard and colonoscopy. (Salbador Reilly al, N Engl J Med 2014;370(14):1286- 1297) The normal value (reference range) for this assay is negative. COLOGUARD RE-SCREENING RECOMMENDATION: Periodic colorectal cancer screening is an important part of preventive healthcare for asymptomatic individuals at average risk for colorectal cancer. ??Following a negative Cologuard result, the [place] [employer] and U.S. Multi-Society Task Force screening guidelines recommend a Cologuard re-screening interval of 3 years. References: [place] [employer] Guideline for Colorectal Cancer Screening: https://www.cancer.org/cancer/gaihh-bexgrr-pxdsiz/azgstbdhj-glmaehaps-tffmcux/ac -rec ommendations.html.; Alexis DK, Tony CR, Chucky LiaoK, Colorectal Cancer Screening: Recommendations for Physicians and Patients from the U.S. Multi-Society Task Force on Colorectal Cancer Screening , Am J Gastroenterology 2017; 112:9740-4229. TEST DESCRIPTION: Composite algorithmic analysis of stool DNA-biomarkers with hemoglobin immunoassay. ?? Quantitative values of individual biomarkers are not reportable and are not associated with individual biomarker result reference ranges. Cologuard is intended for colorectal cancer screening of adults of either sex, 45 years or older, who are at average-risk for colorectal cancer (CRC). Cologuard has been approved for use by the U.S. FDA. The performance of Cologuard was established in a cross sectional study of average-risk adults aged 50-84. Cologuard performance in patients ages 45 to 49 years was estimated by sub-group analysis of near-age groups. Colonoscopies performed for a positive result may find as the most clinically significant lesion: colorectal cancer [4.0%], advanced adenoma (including sessile serrated polyps greater than or equal to 1cm diameter) [20%] or non- advanced adenoma [31%]; or no colorectal neoplasia [45%]. These estimates are derived from a prospective cross-sectional screening study of 10,000 individuals at average risk for colorectal cancer who were screened with both Cologuard and colonoscopy. (Salbador Peña. et al, N Engl J Med 2014;370(14):4968-4572.) Cologuard may produce a false negative or false positive result (no colorectal cancer or precancerous polyp present at colonoscopy follow up). A negative Cologuard test result does not guarantee the absence of CRC or advanced adenoma (pre-cancer). The current Cologuard screening interval is every 3 years. ([place] [employer] and U.S. Multi-Society Task Force). Cologuard performance data in a 10,000 patient pivotal study using colonoscopy as the reference method can be accessed at the following location: www.[employer]r.StayTuned/results. Additional description of the Cologuard test process, warnings and precautions can be found at www.[employer]. Stool specimen (specimen) 05/30/2023 06/02/2023 10:52 AM EDT Camille Patel MD LAB MOLECULAR DIAGNOSTICS O RDERABLES Final Result [facility] (CLIA #:[id number]) [place] [address], * Hepatitis C Ab (05/20/2023 9:22 AM EDT) Hepatitis C Antibody Nonreactive Nonreactive [facility] Comment:Antibodies to HCV no t detected; does not exclude early acuteHCV infection. Blood Venous blood specimen / Unknown 05/20/2023 9:22 AM EDT 05/20/2023 1:02 PM EDT us Camille Patel MD LAB BLOOD ORDERABLES Final Result Performing Organization Address City/[facility]/ZIP Co de Phone Number [facility] [address] [place] [address] [phone] * (ABNORMAL) Lipid Panel, Standard (05/20/2023 9:22 AM EDT) Triglycerides 157(H) <150 mg/dL [facility] Comment:Desirable Triglyceri de: less than 150 mg/dLBorderline High Triglyceride 150-199 mg/dLHigh Triglyceride: 200-499 mg/dLVery High Triglyceride: greater than or equal to 5OO mg/dL Cholesterol 192 <200 mg/dL [facility] Comment:Desirable Cholestero l: less than 200 mg/dLBorderline High Cholesterol: 200-239 mg/dLHigh Cholesterol: greater than 239 mg/dL LDL Cholesterol Calculated 110(H) <100 mg/dL [facility] Comment:Desirable LDL: less than 100 mg/dLNear Optimal/Above Optimal LDL: 110- 129 mg/dLBorderline High LDL: 130-159 mg/dLHigh LDL: 160-189 mg/dLVery High LDL: greater than or equal to 190 mg/dL HDL Cholesterol 51 >40 mg/dL [facility] Comment:Desirable HDL: great er than 40 mg/dL Note: This HDL assay may give artificially low results in patients with liver disease. Blood Venous blood specimen / Unknown 05/20/2023 9:22 AM EDT 05/20/2023 12:57 PM EDT Camille Patel MD LAB BLOOD ORDERABLES Final Result [facility] [address] [place] [address] [phone] from Last 3 Months or Most Recently Relevant to Health Maintenance Insurance [facility] MEDICARE REPLACEMENT [facility] PARTIAL DENT[facility] - [facility] PARTIAL (MEDICAID) Care Teams Cardiopulmonary Supervisor Relationship Specialty Start Date End Date Camille Patel MD [address] [place] [phone] PCP - General Internal Medicine 03/02/18
--- OUTSIDE RECORDS SUMMARY | 2024-04-01 09:52 | XMS_ITS | Encounter Summary ---
Author Organization [employer] Address [address] [place] [address] Care Team Providers Care Floor Trader Name Role Phone Camille Patel MD Primary Care Provider [phone]- [phone] Reason for Visit * Reason Comments Med Refill Encounter Details Date Type Department Care Team ([facility] st Contact Info) Description 03/07/2024 Refill [facility] [address] [place], [place] [phone] Camille Patel MD [address] [place] [address] Erectile dysfunction due to diseases classified elsewhere Social History Tobacco Use Types Packs/Day Years [...] Description 04/19/2024 8:00 AM EST Office Visit [facility] ADULT DENTAL [address] [place] [address] Jourdan Patel 05/18/2024 11:00 AM EDT Clinical Support [facility] [address] [place] [address] Deya Barlow, COREEN [address] [place] [address] documented as of this encounter Visit Diagnoses Diagnosis Erectile dysfunction due to diseases classified elsewhere documented in this encounter Additional Health Concerns Assessment Noted Time PHQ-9 Depression Total Score: 4 04/01/19 23 11:39 AM EST documented as of this encounter Care Teams Floor Trader Relationship Specialty Start Date End Date Camille Patel MD [address] [place] [address] PCP - General Internal Medicine 03/02/18 documented as of this encounter
--- OUTSIDE RECORDS SUMMARY | 2024-04-01 09:52 | XMS_ITS | Encounter Summary ---
Author Organization [employer] Address [address] [place] [address] Care Team Providers Care Institutional Asset Manager Name Role Phone Camille Patel MD Primary Care Provider +1- [phone] Reason for Visit * Reason Comments Hypertension Osteoarthritis Encounter Details Date Type Department Care Team (Latest Contact Info) Description 03/23/2024 10:30 AM EST Office Visit [facility] MED & PEDS [address] [place], [place] [phone] Camille Patel MD [address] [place] [address] Benign hypertension (Primary Dx); Other osteoarthritis involving [...] AM EDT documented as of this encounter Last Filed Vital Signs Vital Sign Reading [...] Mass Index 30.38 03/23/2024 10:22 AM EST documented in this encounter Progress Notes * Camille Patel MD - 03/23/2024 10:30 AM EST Subjective Patient ID: Shay Field is a 73 y.o. male who presents for Hypertension and Osteoarthritis. Hypertension Associated symptoms include neck pain. Pertinent negatives include no headaches or palpitations. Patient is here for follow-up He denies any headache or blurry vision. Very compliant with his blood pressure medication. History of osteoarthritis. Will be scheduled in the next 2 to 3 months for right hip arthroplasty. History of erectile dysfunction. Patient needs a refill on his sildenafil. Also on testosterone therapy which is working well for him. Patient Active Problem List Diagnosis Benign hypertension Chronic kidney disease Erectile dysfunction Gout Induratio penis plastica Joints gout affected Osteoarthritis of multiple joints Current Outpatient Medications on File Prior to Visit Medication Sig Dispense Refill Acetaminophen Extra Strength 500 MG tablet TAKE ONE TABLET BY MOUTH EVERY MORNING 90 tablet 3 Ascorbic Acid (vitamin C) 500 MG tablet TAKE ONE TABLET DAILY 90 tablet 1 atenolol (Tenormin) 25 MG tablet TAKE ONE TABLET BY MOUTH EVERY MORNING 90 tablet 3 BD Integra Syringe 25G X 1 3 ML misc USE TO inject monthly 12 each 11 cholecalciferol (Vitamin D-3) 50 MCG (2000 UT) tablet TAKE ONE TABLET BY MOUTH EVERY DAY 90 tablet 3 clindamycin (Cleocin) 300 MG capsule Take two capsules one hour before the dental appointment 10 capsule 0 clindamycin (Cleocin) 300 MG capsule Take 2 tablets (600mg) 1 hour before dental appt 8 capsule 0 cyanocobalamin (Vitamin B-12) 1000 MCG/ML injection INJECT ONE ML INTRAMUSCULARLY EVERY MONTH 1 mL 11 Diclofenac Sodium 1 % gel APPLY 2 GRAM'S TO AFFECTED AREA(s) THREE TIMES DAILY NEEDED 100 g 1 glucose blood (OneTouch Ultra) test strip at bed time. lisinopril 5 MG tablet TAKE ONE TABLET BY MOUTH EVERY MORNING 90 tablet 3 magnesium oxide (Mag-Ox) 400 MG tablet TAKE ONE TABLET EVERY DAY 90 tablet 1 naloxone (Narcan) 4 mg/0.1 mL nasal spray Administer 0.1 mL into affected nostril(s). omeprazole (PriLOSEC) [address] capsule Take 1 capsule (40 mg) by mouth before breakfast. Do not crush or chew. 90 capsule 3 oxyCODONE-acetaminophen (Percocet) 7.5-325 MG tablet TAKE ONE TABLET BY MOUTH EVERY EIGHT HOURS NEEDED FOR SEVERE PAIN 84 tablet 0 simvastatin (Zocor) 20 MG tablet TAKE ONE TABLET BY MOUTH AT BEDTIME 90 tablet 3 Sodium Fluoride 1.1 % gel Apply a thin ribbon of the gel on the tooth brush. [place] thoroughly once daily, preferable at bedtime. 112 g 2 Testim 50 MG/5GM (1%) gel apply contents of TWO packets TO SKIN ONCE DAILY 300 g 0 testosterone (Testim) 50 MG/5GM (1%) gel Place 2 packets (10 g) on the skin Once per day. 300 g 0 [DISCONTINUED] oxyCODONE-acetaminophen (Percocet) 7.5-325 MG tablet Take 1 tablet by mouth every 8 (eight) hours if needed for severe pain. 84 tablet 0 [DISCONTINUED] vardenafil (Levitra) 20 MG tablet Take 1 tablet (20 mg) by mouth if needed each day for erectile dysfunction for up to 30 doses. 30 tablet 3 No current facility-administered medications on file prior to visit. Allergies Allergen Reactions Penicillin G Hives Sulfa Antibiotics Amoxicillin Rash Nsaids Rash Review of Systems Constitutional: Negative for activity change, appetite change, chills and diaphoresis. HENT: Negative for dental problem, drooling and ear discharge. Eyes: Negative for pain and itching. Respiratory: Negative for cough, choking and chest tightness. Cardiovascular: Negative for palpitations and leg swelling. Gastrointestinal: Negative for abdominal pain, anal bleeding and blood in stool. Endocrine: Negative for cold intolerance and heat intolerance. Genitourinary: Negative for flank pain, frequency and genital sores. Musculoskeletal: Positive for arthralgias and neck pain. Negative for back pain. Neurological: Negative for light-headedness, numbness and headaches. Psychiatric/Behavioral: Negative for agitation, confusion and decreased concentration. Objective BP 137/71 (BP Location: Left arm, Patient Position: Sitting, BP Cuff Size: Adult) Pulse 61 Temp98 ??F (36.7 ??C) (Oral) Resp 20 Ht 5' 7 (1.702 m) Wt 194 lb (88 kg) SpO2 98% BMI 30.38 kg/m?? Physical Exam Constitutional: General: He is not in acute distress. Appearance: Normal appearance. He is not ill-appearing, toxic-appearing or diaphoretic. Cardiovascular: Rate and Rhythm: Normal rate. Pulmonary: Effort: Pulmonary effort is normal. Abdominal: General: Abdomen is flat. Skin: General: Skin is warm. Neurological: General: No focal deficit present. Mental Status: He is alert. Assessment/Plan Diagnoses and all orders for this visit: Benign hypertension Comments: Stable No change Continue with the DASH diet. Other osteoarthritis involving multiple joints Comments: Continue with COT as directed Tylenol as needed Erectile dysfunction due to diseases classified elsewhere - vardenafil (Levitra) 20 MG tablet; Take 1 tablet (20 mg) by mouth if needed each day for erectiledysfunction for up to 30 doses. documented in this encounter Plan of Treatment Upcoming Encounters Date Type Department Care Team (Late st Contact Info) Description 04/19/2024 8:00 AM EST Office Visit [facility] ADULT DENTAL [address] [place] [address] Jourdan Patel 05/18/2024 11:00 AM EDT Clinical Support [facility] MED & PEDS [address] [place] [address] Deya Barlow RN [address] [place], [place] [phone] documented as of this encounter Visit Diagnoses Diagnosis Benign hypertension- Primary Essential hypertension, benign Other osteoarthritis involving multiple joints Erectile dysfunction due to diseases classified elsewhere documented in this encounter Additional Health Concerns Assessment Noted Time PHQ-9 Depression Total Score: 3 03/23/19 25 1:34 PM EST documented as of this encounter Care Teams Institutional Asset Manager Relationship Specialty Start Date End Date Camille Patel MD [address] [place] [address] PCP - General Internal Medicine 03/02/18 documented as of this encounter
--- OUTSIDE RECORDS SUMMARY | 2024-04-01 09:52 | XMS_ITS | Encounter Summary ---
Author Organization [employer] Address [address] [place] [address] Care Team Providers Care Ent Consultant Name Role Phone Camille Patel MD Primary Care Provider [phone]- [phone] Reason for Referral * Medications - Closed Specialty Diagnoses / Procedures Referred By Vitaly t Referred To Contact Diagnoses Erectile dysfunction due to diseases classified elsewhere Camille Patel MD [address] [place] [address] Phone: tel: fax: Referral ID Status Reason Start Date Expiration Date Visits Re quested Visits Authorized [id number] Closed 01/22/2024 01/21/2025 1 1 Encounter Details Date Type Department Care Team ([facility] st Contact Info) Description 01/22/2024 Orders Only [facility] CHC MED & PEDS [address] [place] [address] Camille Patel MD [address] [place] [address] Erectile dysfunction due to diseases classified elsewhere (Primary Dx) Social History Tobacco Use Types [...] Description 04/19/2024 8:00 AM EST Office Visit [facility] ADULT DENTAL [address] [place] [address] Jourdan Patel 05/18/2024 11:00 AM EDT Clinical Support [facility] MED & PEDS [address] [place] [address] Deya Barlow RN [address] [place] [address] documented as of this encounter Visit Diagnoses Diagnosis Erectile dysfunction due to diseases classified elsewhere- Primary documented in this encounter Additional Health Concerns Assessment Noted Time PHQ-9 Depression Total Score: 4 04/01/19 23 11:39 AM EST documented as of this encounter Care Teams Ent Consultant Relationship Specialty Start Date End Date Camille Patel MD [address] [place] [address] PCP - General Internal Medicine 03/02/18 documented as of this encounter
--- OUTSIDE RECORDS SUMMARY | 2024-04-01 09:52 | XMS_ITS | Encounter Summary ---
Author Organization [employer] Address [address] [facility] [address] [place] [address] Care Team Providers Care Industrial Safety And Health Specialist Name Role Phone Camille Patel MD Primary Care Provider [phone]- [phone] Encounter Details Date Type Department Care Team (Late st Contact Info) Description 03/30/2024 Telephone [facility] [address] [place] [address] Camille Patel MD [address] [place] [address] Social History Tobacco Use Types Packs/Day Years [...] Upcoming Encounters Date Type Department Care Team ([facility] st Contact Info) Description 04/19/2024 8:00 AM EST Office Visit [facility] ADULT DENTAL [address] [place] [address] Jourdan Patel 05/18/2024 11:00 AM EDT Clinical Support [facility] MED & PEDS [address] [place] [address] Deya Barlow RN [address] [place] [address] documented as of this encounter Visit Diagnoses Not on filedocumented in this encounter Additional Health Concerns Assessment Noted Time PHQ-9 Depression Total Score: 3 03/23/19 25 1:34 PM EST documented as of this encounter Care Teams Industrial Safety And Health Specialist Relationship Specialty Start Date End Date Camille Patel MD [address] [place] [address] PCP - General Internal Medicine 03/02/18 documented as of this encounter
--- OUTSIDE RECORDS SUMMARY | 2024-04-01 09:52 | XMS_ITS | Encounter Summary ---
Author Organization [employer] [facility] Address [address] [place] [address] Care Team Providers Care Guide Travel Name Role Phone Camille Patel MD Primary Care Provider [phone]- [phone] Encounter Details Date Type Department Care Team (Latest Contact Info) Description 04/30/2020 Abstract [facility] CONVERSIONS Dental, Provider, DDS Social History Tobacco Use Types Packs/Day Years Used Date Smoking Tobacco: Never Assessed Sex and Gender Information Value Date Recorded Sex Assigned at Male 12/30/2021 10:21 AM EDT Legal Sex Male 10:21 AM EDT Gender Identity Male 12/30/2021 10:21 AM EDT Sexual Orientation Straight 12/30/2021 10 :21 AM EDT documented as of this encounter Plan of Treatment Upcoming Encounters Date Type Department Care Team ( st Contact Info) Description 04/19/2024 8:00 AM EST Office Visit [facility] ADULT DENTAL [address] [place] [address] Jourdan Patel 05/18/2024 11:00 AM EDT Clinical Support [facility] MED & PEDS [address] [place] [address] Deya Barlow, COREEN [address] [place] [address] documented as of this encounter Visit Diagnoses Not on filedocumented in this encounter Care Teams Guide Travel Relationship Specialty Start Date End Date Camille Patel MD [address] [place] [address] PCP - General Internal Medicine 03/02/18 documented as of this encounter
--- OUTSIDE RECORDS SUMMARY | 2024-04-01 09:52 | XMS_ITS | Encounter Summary ---
Author Organization [employer] Address [address] [place] [address] Care Team Providers Care Technology Applications Teacher Name Role Phone Camille Patel MD Primary Care Provider [phone]- [phone] Reason for Referral * Consultation (Routine) - Canceled Specialty Diagnoses / Procedures Referred By Contpatrick t Referred To Contact Orthotics Diagnoses Other osteoarthritis involving multiple joints Camille Patel MD [address] [place] [address] Phone: tel: fax: Referral ID Status Reason Start Date Expiration Date Visits Requested Visits Authorized [id number] Canceled Specialty Services Required 06/30/2023 06/29/2024 1 1 Encounter Details Date Type Department Care Team (Late st Contact Info) Description 06/30/[address] [facility] CHC MED & PEDS [address] [place] [address] Camille Patel MD [address] [place] [address] Other osteoarthritis involving multiple joints (Primary Dx) Social History Tobacco Use Types Packs/Day Years Used Date Smoking Tobacco: Never Passive Smoke Exposure: Never Smokeless Tobacco: Never Alcohol Use Standard Drinks/Week Comments Defer 0 (1 standard drink = 0.6 oz pur e alcohol) Depression Answer Date Recorded Patient Health Questionnaire-9 Score 4 04/01/2022 Housing Stability Answer Date Recorded What is your housing situation today? I have isaias sing 12/29/[address] you li [...] AM EST Office Visit [facility] ADULT DENTAL [address] [place] [address] Jourdan Patel 05/18/2024 11:00 AM EDT Clinical Support [facility] MED & PEDS [address] [place] [address] Deya Barlow, COREEN [address] [place] [address] Scheduled Referrals Name Type Priority Associated Diagnoses Orde r Schedule Referral for Orthotics Outpatient Referral Routine Other osteoarthritis involving multiple joints Expected: 06/30/2023 (Approximate), Expires: 06/29/2024 documented as of this encounter Visit Diagnoses Diagnosis Other osteoarthritis involving multiple joints- Primary documented in this encounter Additional Health Concerns Assessment Noted Time PHQ-9 Depression Total Score: 4 04/01/19 23 11:39 AM EST documented as of this encounter Care Teams Technology Applications Teacher Relationship Specialty Start Date End Date Camille Patel MD [address] [place] [address] PCP - General Internal Medicine 03/02/18 documented as of this encounter
--- OUTSIDE RECORDS SUMMARY | 2024-04-01 09:52 | XMS_ITS | Encounter Summary ---
Author Organization [employer] Address [address] [place] [address] 7t [place] [address] Care Team Providers Care Opener Name Role Phone Camille Patel MD Primary Care Provider [phone] Encounter Details Date Type Department Care Team (Latest Contact Info) Description 03/23/2024 Travel Social History Tobacco Use Types Packs/Day Years [...] 8:00 AM EST Office Visit [facility] ADULT DENTAL [address] [place] [address] Jourdan Patel 05/18/2024 11:00 AM EDT Clinical Support [facility] MED & PEDS [address] [place] [address] Deay Barlow, COREEN [address] [place] [address] documented as of this encounter Visit Diagnoses Not on filedocumented in this encounter Additional Health Concerns Assessment Noted Time PHQ-9 Depression Total Score: 3 03/23/19 25 1:34 PM EST documented as of this encounter Care Teams Opener Relationship Specialty Start Date End Date Camille Patel MD [address] [place] [address] PCP - General Internal Medicine 03/02/18 documented as of this encounter
--- OUTSIDE RECORDS SUMMARY | 2024-04-01 09:52 | XMS_ITS | Encounter Summary ---
Author Organization [employer] Address [address] [place] [address] Care Team Providers Care Bag Adjuster Name Role Phone Camille Patel MD Primary Care Provider [phone]- [phone] Reason for Visit * Reason Comments Med Refill Encounter Details Date Type Department Care Team ([facility] st Contact Info) Description 03/22/2024 Refill [facility] CHC MED & PEDS [address] [place], [place] [phone] Camille Patel MD [address] [place] [address] Chronic pain syndrome Social History Tobacco Use Types Packs/Day Years [...] 04/19/2024 8:00 AM EST Office Visit [facility] ADULT D[facility] [address] [place] [address] Jourdan Patel 05/18/2024 11:00 AM EDT Clinical Support [facility] MED & PEDS [address] [place] [address] Deya Barlow, COREEN [address] [place] [address] documented as of this encounter Visit Diagnoses Diagnosis Chronic pain syndrome documented in this encounter Additional Health Concerns Assessment Noted Time PHQ-9 Depression Total Score: 4 04/01/19 23 11:39 AM EST documented as of this encounter Care Teams Bag Adjuster Relationship Specialty Start Date End Date Camille Patel MD [address] [place] [address] PCP - General Internal Medicine 03/02/18 documented as of this encounter
--- OUTSIDE RECORDS SUMMARY | 2024-04-01 09:52 | XMS_ITS | Encounter Summary ---
Author Organization [employer] [facility] Address [address] [place] [address] Care Team Providers Care Carpet Yarn Winder Operator Name Role Phone Camille Patel MD Primary Care Provider [phone]- [phone] Encounter Details Date Type Department Care Team (Latest Contact Info) Description 07/24/2021 Abstract [facility] CONVERSIONS Dental, Provider, DDS Social History Tobacco [...] 8:00 AM EST Office Visit [facility] ADULT DENTAL [address] [place] [address] Jourdan Patel 05/18/2024 11:00 AM EDT Clinical Support [facility] MED & PEDS [address] [place] [address] Deya Barlow, COREEN [address] [place] [address] documented as of this encounter Visit Diagnoses Not on filedocumented in this encounter Care Teams Carpet Yarn Winder Operator Relationship Specialty Start Date End Date Camille Patel MD [address] [place] [address] PCP - General Internal Medicine 03/02/18 documented as of this encounter
--- OUTSIDE RECORDS SUMMARY | 2024-04-01 09:53 | XMS_ITS | Encounter Summary ---
Author Organization [employer] Address [address] [facility] 7t [place] [address] Care Team Providers Care Jailer/Training Officer Name Role Phone Camille Patel MD Primary Care Provider [phone] Encounter Details Date Type Department Care Team (Late st Contact Info) Description 09/10/2023 Orders Only [facility] CHC MED & PEDS [address] [place], [place] [phone] ProviderCelsa MD Social History Tobacco Use Types Packs/Day Years Used Date Smoking Tobacco: Never Passive Smoke Exposure: Never Smokeless Tobacco: Never Alcohol Use Standard Drinks/Week Comments Defer 0 (1 standard drink = 0.6 oz pur e alcohol) Depression Answer Date Recorded Patient Health Questionnaire-9 Score 4 04/01/2022 Housing Stability Answer Date Recorded What is your housing situation today? I have isaiassara justin 12/29/[address] you [...] Description 04/19/2024 8:00 AM EST Office Visit [facility] ADULT DENTAL [address] [place] [address] Jourdan Patel 05/18/2024 11:00 AM EDT Clinical Support [facility] MED & PEDS [address] [place] [address] Deya Barlow, RN [address] [place] [address] documented as of this encounter Procedures Procedure Name Priority Date/Time Associated Diagnosis Comments NM TUMOR LOCALIZATION SPECT W CT Routine 08/13/2023 8:52 AM EDT PROTEIN, TOTAL, 24-HOUR URINE WITHOUT CREATININE Routine 06/22/2023 8:47 AM EDT IMMUNOGLOBULINS, QUANTITATIVE, IGA, IGG, IGM Routine 06/22/2023 8:47 AM EDT SURGICAL PATHOLOGY Routine 06/02/2023 8: 49 AM EDT documented in this encounter Results * NM TUMOR LOCALIZATION SPECT W CT (08/13/2023 8:52 AM EDT) Anatomical Region Laterality Modality Nuclear Medicine Historical Provider MD WHALEY NM PROCEDURES Final R esult * Protein, urine, 24 hour (06/22/2023 8:47 AM EDT) Urine Urine specimen obtained by clean catch procedure / Unknown Historical Provider LAB URINE ORDERABLES Cande l Result * Immunoglobulins Panel, Serum (06/22/2023 8:47 AM EDT) Blood Venous blood specimen / Unknown us Historical Provider LAB BLOOD ORDERABLES Cande l Result * Surgical Pathology (06/02/2023 8:49 AM EDT) us Historical Provider LAB PATHOLOGY ORDERABLES Final Result documented in this encounter Visit Diagnoses Not on filedocumented in this encounter Additional Health Concerns Assessment Noted Time PHQ-9 Depression Total Score: 4 04/01/19 23 11:39 AM EST documented as of this encounter Care Teams Jailer/Training Officer Relationship Specialty Start Date End Date Camille Patel MD [address] [place] [address] PCP - General Internal Medicine 03/02/18 documented as of this encounter
--- OUTSIDE RECORDS SUMMARY | 2024-04-01 09:53 | XMS_ITS | Encounter Summary ---
Author Organization [employer] Address [address] [place] [address] 7 [place] [address] Care Team Providers Care Dope Weigh Operator Name Role Phone Camille Patel MD Primary Care Provider [phone]- [phone] Encounter Details Date Type Department Care Team (Late st Contact Info) Description 05/20/2023 Orders Only [facility] CHC MED & PEDS [address] [place], [place] [phone] Camille Patel MD [address] [place] [address] Other hyperlipidemia (Primary Dx) Social History Tobacco Use Types [...] Description 04/19/2024 8:00 AM EST Office Visit [facility] ADULT DENTAL [address] [place] [address] Jourdan Patel 05/18/2024 11:00 AM EDT Clinical Support [facility] MED & PEDS [address] [place] [address] Deya Barlow, RN [address] [place] [address] documented as of this encounter Procedures Procedure Name Priority Date/Time Associated Diagnosis Comments HEPATIC FUNCTION PANEL Routine 05/20/2023 9:22 AM EDT Other hyperlipidemia documented in this encounter Results * Hepatic Function Panel (05/20/2023 9:22 AM EDT) Bilirubin, Total 0.6 0.0 - 1.0 mg/dL [facility] Bilirubin, Direct 0.2 0.0 - 0.5 mg/dL [facility] Aspartate Amino Transferase 26 5 - 37 U/L [facility] Alanine Aminotransferase 27 0 - 40 U/L [facility] Total Protein 7.0 6.5 - 8.0 g/dL [facility] Albumin Level 4.2 3.5 - 5.0 g/dL [facility] Alkaline Phosphatase 75 39 - 117 U/L [facility] Blood Venous blood specimen / Unknown 05/20/2023 9:22 AM EDT 05/20/2023 12:57 PM EDT Camille Patel MD LAB BLOOD ORDERABLES Final Result [facility] [address] [place] [address] [phone] documented in this encounter Visit Diagnoses Diagnosis Other hyperlipidemia- Primary documented in this encounter Additional Health Concerns Assessment Noted Time PHQ-9 Depression Total Score: 4 04/01/19 23 11:39 AM EST documented as of this encounter Care Teams Dope Weigh Operator Relationship Specialty Start Date End Date Camille Patel MD [address] [place] [address] PCP - General Internal Medicine 03/02/18 documented as of this encounter
[2024-04-01 12:15] LABS: B Type Natriuretic Peptide 100 pg/mL (<100)
[2024-04-01 12:30] LABS: Anion Gap 12 (12-20); Blood Urea Nitrogen 20 mg/dL (9-16); Calcium 8.8 mg/dL (8.4-10.2); Carbon Dioxide 23 mmol/L (22-29); Chloride 110 mmol/L (96-108); Estimated Glomerular Filt Rate 53; Glucose Random 106 mg/dL (60-115); Potassium 4.8 mmol/L (3.3-5.1); Sodium 140 mmol/L (135-145)
== END 2024-04-01 09:25 | disposition home or self-care (01) ==
LOC: HO.CHCLDS 09:24
PROVIDERS: Visit Provider Internal Medicine
DX: I50.9 Heart failure, unspecified (principal)
CPT/HCPCS: 36415; 80048; 83880

== ENCOUNTER 2024-11-10 10:14 | Outpatient (REF) | payer MEDICARE, MEDICAID, SELFPAY ==
[2024-11-10 14:18] LABS: MANUAL DIFF FLAG NO
[2024-11-10 14:27] LABS: Hematocrit 40.0 % (42.0-52.0); Hemoglobin 12.7 g/dl (14.0-18.0); Imm Gran Abs Auto 0.01 X10*3/uL (0.00-0.03); Imm Gran Pct Auto 0.2 % (0.0-0.4); Lymphocytes Absolute Auto 1.4 X10*3/uL (1.2-4.9); Mean Corpuscular HGB Conc 31.8 g/dl (31.0-36.0); Mean Corpuscular Hemoglobin 26.3 pg (27.0-33.0); Mean Corpuscular Volume 83.0 fL (80.0-98.0); NRBC Abs Auto 0.000 X10*3/uL (0.0-0.012); NRBC Pct Auto 0.0 /100WBC (0.0-0.2); Platelet Count 225 X10*3/uL (160-400); Red Blood Count 4.82 X10*6/uL (4.60-5.80); White Blood Count 5.2 X10*3/uL (4.8-10.8)
[2024-11-10 14:46] LABS: Alanine Aminotransferase 11 U/L (0-40); Albumin Level 4.3 g/dL (3.5-5.0); Alkaline Phosphatase 95 U/L (39-117); Anion Gap 10 (12-20); Aspartate Amino Transferase 25 U/L (5-37); Blood Urea Nitrogen 21 mg/dL (9-16); Calcium 8.6 mg/dL (8.4-10.2); Carbon Dioxide 24 mmol/L (22-29); Chloride 109 mmol/L (96-108); Cholesterol 175 mg/dL (<200); Estimated Glomerular Filt Rate 41; HDL Cholesterol 43 mg/dL (>40); Potassium 5.3 mmol/L (3.3-5.1); Sodium 138 mmol/L (135-145); Total Protein 6.9 g/dL (6.5-8.0); Triglycerides 73 mg/dL (<150)
== END 2024-11-10 10:15 | disposition home or self-care (01) ==
LOC: HO.CHCLDS 10:14
PROVIDERS: Visit Provider Internal Medicine
DX: I10 Essential (primary) hypertension (principal)
CPT/HCPCS: 36415; 80053; 80061; 84443; 85025

== ENCOUNTER 2024-11-22 10:46 | Outpatient (REF) | payer MEDICARE, MEDICAID, SELFPAY ==
--- OUTSIDE RECORDS SUMMARY | 2024-11-22 10:00 | XMS_ITS | Encounter Summary ---
Author Organization [employer] Address [address] [place] [address] 7 [place] [address] Care Team Providers Care Optical Effects Camera Operator Name Role Phone Camille Patel MD Primary Care Provider [phone] Encounter Details Date Type Department Care Team ([facility] st Contact Info) Description 11/22/2024 10:00 AM EDT Office Visit [facility] MED & PEDS [address] [place], [place] [phone] Camille Patel MD [address] [place] [address] Stage 3a chronic kidney disease (CMS/HCC) (Primary Dx); Benign hypertension; Encounter for immunization; Immunization due Social History Tobacco Use Types Packs/Day Years [...] Sign Reading Time Taken Comments Blood Pressure 124/70 11/22/2024 9:57 AM EDT Pulse 58 11/22/2024 9:57 AM EDT Temperature 36.4 C (97.5 F) 11/22/2024 9:57 AM EDT Respiratory Rate 20 11/22/2024 9:57 AM EDT Oxygen Saturation 96% 11/22/2024 9:57 AM EDT Inhaled Oxygen Concentration - - Weight 86.2 kg (190 lb) 11/22/2024 9:57 AM EDT Height 170.2 cm (5' 7 ) 11/22/2024 9:57 AM EDT Body Mass Index 29.76 11/22/2024 9:57 AM EDT documented in this encounter Plan of Treatment Upcoming Encounters Date Type Department Care Team (Late st Contact Info) Description 03/09/2025 11:00 AM EST Clinical Support [facility] MED [facility] PED[facility] [address] [place] [address] Deya Barlow RN [address] [place] [address] 04/21/2025 8:00 AM EST Office Visit [facility] ADULT DENTAL [address] [place] [address] Jourdan Patel Scheduled Orders Name Type Priority Associated Diagnoses Orde r Schedule Vitamin D, 25-Hydroxy, Total, Immunoassay Lab Routine Stage 3a chronic kidney disease ([facility]) Expected: 11/22/2024 (Approximate), Expires: 11/22/2025 Vitamin B12/Folate, Serum Panel Lab Routine Stage 3a chronic kidney disease ([facility]/HCC) Expected: 11/22/2024, Expires: 11/22/2025 documented as of this encounter Visit Diagnoses Diagnosis Stage 3a chronic kidney disease ([facility])- Primary Benign hypertension Essential hypertension, benign Encounter for immunization Immunization due documented in this encounter Additional Health Concerns Assessment Noted Time PHQ-9 Depression Total Score: 3 03/23/19 25 1:34 PM EST documented as of this encounter Care Teams Optical Effects Camera Operator Relationship Specialty Start Date End Date Camille Patel MD [address] [place] [address] PCP - General Internal Medicine 03/02/18 documented as of this encounter
--- OUTSIDE RECORDS SUMMARY | 2024-11-22 13:13 | XMS_ITS | Encounter Summary ---
Author Organization [employer] Address [address] [place] [address] 7 [place] [address] Care Team Providers Care Bid Clerk Name Role Phone Camille Patel MD Primary Care Provider [phone] Encounter Details Date Type Department Care Team ([facility] st Contact Info) Description 11/21/2024 Telephone [facility] MED & PEDS [address] [place], [place] [phone] Camille Patel MD [address] [place], [place] [phone] Social History Tobacco Use Types Packs/Day Years [...] Telephone Encounter - Lovely Vu RN - 11/21/2024 2:42 PM EDT Chart Prep Labs: not done Images: not applicable Referrals: not applicable Vaccines due: Flu and Zoster Screenings: not applicable Overdue care gaps: Not applicable documented in this encounter Plan of Treatment Upcoming Encounters Date Type Department Care Team (Late st Contact Info) Description 03/09/2025 11:00 AM EST Clinical Support [facility] [address] [place] [address] Deya Barlow RN [address] [place] [address] 04/21/2025 8:00 AM EST Office Visit [facility] AD[facility] [address] [place] [address] Jourdan Patel documented as of this encounter Visit Diagnoses Not on filedocumented in this encounter Additional Health Concerns Assessment Noted Time PHQ-9 Depression Total Score: 3 03/23/19 25 1:34 PM EST documented as of this encounter Care Teams Bid Clerk Relationship Specialty Start Date End Date Camille Patel MD [address] [place] [address] PCP - General Internal Medicine 1/1/19 documented as of this encounter
--- OUTSIDE RECORDS SUMMARY | 2024-11-22 13:13 | XMS_ITS | Encounter Summary ---
Author Organization [employer] Address [address] [place] [address] 7 [place] [address] Care Team Providers Care Delivery Mgr Name Role Phone Camille Patel MD Primary Care Provider [phone] Encounter Details Date Type Department Care Team (Late st Contact Info) Description 04/04/2024 Orders Only [facility] CHC MED & PEDS [address] [place], [place] [phone] Camille Patel MD [address] [place], [place] [phone] Other osteoarthritis involving multiple joints (Primary Dx) [...] Upcoming Encounters Date Type Department Care Team ([facility] st Contact Info) Description 03/09/2025 11:00 AM EST Clinical Support [facility] MED & PEDS [address] [place] [address] Deya Barlow RN [address] [place] [address] 04/21/2025 8:00 AM EST Office Visit [facility] ADULT DENTAL [address] [place] [address] Jourdan Patel documented as of this encounter Visit Diagnoses Diagnosis Other osteoarthritis involving multiple joints- Primary documented in this encounter Additional Health Concerns Assessment Noted Time PHQ-9 Depression Total Score: 3 03/23/19 25 1:34 PM EST documented as of this encounter Care Teams Delivery Mgr Relationship Specialty Start Date End Date Camille Patel MD [address] [place] [address] PCP - General Internal Medicine 03/02/18 documented as of this encounter
--- OUTSIDE RECORDS SUMMARY | 2024-11-22 13:13 | XMS_ITS | Encounter Summary ---
Author Organization [employer] Address [address] [place] [address] [place] [address] Care Team Providers Care Us Administrative Law Judge Name Role Phone Camille Patel MD Primary Care Provider [phone] Reason for Visit * Reason Onset Date Comments requesting a call 09/12/2022 Encounter Details Date Type Department Care Team ([facility] st Contact Info) Description 09/12/2022 Telephone [facility] CHC MED & PEDS [address] [place], [place] [phone] Camille Patel MD [address] [place] [address] requesting a call Social History Tobacco Use [...] is requesting to complete the MRI at [facility]. Will forward to appropriate [...] further questions or concerns. Please contact at [phone] * Telephone Encounter - Darlene Pisano - 09/12/2022 1:29 PM EDT Tc from pt requesting a call in regards to a neck MRI PCP ordered. Please contact pt at [phone] documented in this encounter Plan of Treatment Upcoming Encounters Date Type Department Care Team (Late st Contact Info) Description 03/09/2025 11:00 AM EST Clinical Support [facility] MED & PEDS [address] [place] [address] Deya Barlow, COREEN [address] [place] [address] 04/21/2025 8:00 AM EST Office Visit [facility] ADULT DENTAL [address] [place] [address] [place], Jourdan documented as of this encounter Visit Diagnoses Not on filedocumented in this encounter Additional Health Concerns Assessment Noted Time PHQ-9 Depression Total Score: 4 04/01/19 23 11:39 AM EST documented as of this encounter Care Teams Us Administrative Law Judge Relationship Specialty Start Date End Date Camille Patel MD [address] [place] [address] PCP - General Internal Medicine 03/02/18 documented as of this encounter
--- OUTSIDE RECORDS SUMMARY | 2024-11-22 13:13 | XMS_ITS | Encounter Summary ---
Author Organization [employer] Address [address] [facility] 7 [place] [address] Care Team Providers Care Heating Engineer Name Role Phone Camille Patel MD Primary Care Provider [phone] Encounter Details Date Type Department Care Team (Late st Contact Info) Description 05/19/2024 Orders Only [facility] MEDICINE [address] [place] [address] Camille Patel MD [address] [place] [address] Social History Tobacco Use Types Packs/Day Years [...] Upcoming Encounters Date Type Department Care Team ([facility] st Contact Info) Description 03/09/2025 11:00 AM EST Clinical Support [facility] MED & PEDS [address] [place] [address] Deya Barlow RN [address] [place] [address] 04/21/2025 8:00 AM EST Office [facility] ADULT DENTAL [address] [place] [address] Jourdan Patel documented as of this encounter Visit Diagnoses Not on filedocumented in this encounter Additional Health Concerns Assessment Noted Time PHQ-9 Depression Total Score: 3 03/23/19 25 1:34 PM EST documented as of this encounter Care Teams Heating Engineer Relationship Specialty Start Date End Date Camille Patel MD [address] [place] [address] PCP - General Internal Medicine 03/02/18 documented as of this encounter
--- OUTSIDE RECORDS SUMMARY | 2024-11-22 13:13 | XMS_ITS | Encounter Summary ---
Author Organization [employer] Address [address] [place] [address] 7 [place] [address] Care Team Providers Care Crawler Crane Operator Name Role Phone Camille Patel MD Primary Care Provider [phone] Reason for Visit * Reason Onset Date Comments Medication Question 01/21/2024 Encounter Details Date Type Department Care Team ([facility] Contact Info) Description 01/21/2024 Telephone [facility] CHC MED & PEDS [address] [place], [place] [phone] Camille Patel MD [address] [place] [address] Medication Question Social History Tobacco Use Types [...] 11:00 AM EST Clinical Support [facility] MED & PEDS [address] [place] [address] Deya Barlow, COREEN [address] [place] [address] 04/21/2025 8:00 AM EST Office Visit [facility] ADULT DENTAL [address] [place] [address] Jourdan Patel documented as of this encounter Visit Diagnoses Not on filedocumented in this encounter Additional Health Concerns Assessment Noted Time PHQ-9 Depression Total Score: 4 04/01/19 23 11:39 AM EST documented as of this encounter Care Teams Crawler Crane Operator Relationship Specialty Start Date End Date Camille Patel MD [address] [place] [address] PCP - General Internal Medicine 03/02/18 documented as of this encounter
--- OUTSIDE RECORDS SUMMARY | 2024-11-22 13:13 | XMS_ITS | Clinical Summary ---
Author Organization [employer] Address [address] [place] [address] [address] [place] [address] Care Team Providers Care Senior Integration Architect Name Role Phone Camille Patel MD Primary Care Provider [phone] Allergies Active Allergy Reactions Criticality Noted Date Comments Amoxicillin Rash Low 03/05/2022 Nsaids Rash Low 10/14/2023 Penicillin G Hives 03/05/2022 Sulfa Antibiotics 03/05/2022 Medications glucose blood (UbimoTouch Ultra) test strip at bed time. 019 Active Sodium Fluoride 1.1 % gelIndications:T ooth caries Apply a thin ribbon of the gel on the tooth brush. [place] thoroughly once daily, preferable at bedtime. 112 g 2 023 Active clindamycin (Cleocin) 300 MG capsule Take two capsules one hour before the dental appointment 10 capsule 023 Active Diclofenac Sodium 1 % gelIndications:T rochanteric bursitis of left hip APPLY 2 GRAM'S TO AFFECTED AREA(s) THREE TIMES DAILY NEEDED 100 g 1 024 Active testosterone (Testim) 50 MG/5GM (1%) gelIndications:E rectile dysfunction due to diseases classified elsewhere Place 2 packets (10 g) on the skin Once per day. 300 g 024 Active cyanocobalamin (Vitamin B-12) 1000 MCG/ML injectionIndicat ions:Vitamin B12 deficiency INJECT ONE ML INTRAMUSCULARLY EVERY MONTH 1 mL 11 025 Active cholecalciferol VITAMIN D (Vitamin D-3) 50 MCG (2000 UT) tabletIndication s:Low vitamin D level TAKE ONE TABLET BY MOUTH EVERY DAY 90 tablet 3 025 Active clindamycin (Cleocin) 300 MG capsule Take 2 tablets (600mg) 1 hour before dental appt 8 capsule 025 Active omeprazole (PriLOSEC) [address] capsuleIndicatio ns:Gastroesophag eal reflux disease without esophagitis TAKE ONE CAPSULE DAILY BEFORE BREAKFAST DO NOT BREAK, CRUSH, DISSOLVE OR CHEW 90 capsule 3 025 Active Ascorbic Acid (vitamin C) 500 MG tablet TAKE ONE TABLET DAILY 90 tablet 1 025 Active lisinopril 5 MG tabletIndication s:Benign hypertension TAKE ONE TABLET EVERY MORNING 90 tablet 3 025 Active simvastatin (Zocor) 20 MG tabletIndication s:Other hyperlipidemia TAKE ONE TABLET BY MOUTH AT BEDTIME 90 tablet 3 025 Active atenolol (Tenormin) 25 MG tabletIndication s:Benign hypertension TAKE 1 TABLET EVERY MORNING 90 tablet 3 025 Active Acetaminophen Extra Strength 500 MG tabletIndication s:Neck pain TAKE ONE TABLET EVERY MORNING 90 tablet 3 025 Active Syringe/Needle, Disp, (BD Integra Syringe) 25G X 1 3 ML miscIndications: Vitamin B12 deficiency To inject monthly 12 each 11 025 Active lidocaine-priloc lena (Emla) 2.5-2.5 % creamIndications :Other osteoarthritis involving multiple joints APPLY TO THE AFFECTED AREA(S) ONCE DAILY DIRECTED 30 g 3 025 Active magnesium oxide (Mag-Ox) 400 (240 Mg) MG tabletIndication s:Other osteoarthritis involving multiple joints TAKE ONE TABLET BY MOUTH ONCE DAILY 90 tablet 1 025 Active clindamycin (Cleocin) 300 MG capsule Take 2 tabs (600mg) 1 hour prior to dental procedure 6 capsule 025 Active oxyCODONE-acetam inophen (Percocet) 7.5-325 MG tabletIndication s:Chronic pain syndrome Take 1 tablet by mouth every 8 (eight) hours if needed for severe pain. 84 tablet 025 Active Testim 50 MG/5GM (1%) gelIndications:E rectile dysfunction due to diseases classified elsewhere APPLY contents of TWO packets TO SKIN ONCE daily 300 g 025 Active vardenafil (Levitra) 20 MG tabletIndication s:Erectile dysfunction due to diseases classified elsewhere TAKE ONE TABLET DAILY NEEDED FOR erictile dysfunction 30 tablet 025 Active naloxone (Narcan) 4 mg/0.1 mL nasal spray Administer 1 spray (4 mg) into affected nostril(s) if needed for opioid reversal. 2 each 1 025 Active naloxone (Narcan) 4 mg/0.1 mL nasal spray Administer 0.1 mL into affected nostril(s). 022 2024 Discontinued( Reorder (will not trigger notification to Pharmacy)) vardenafil (Levitra) 20 MG tabletIndication s:Erectile dysfunction due to diseases classified elsewhere TAKE ONE TABLET DAILY NEEDED FOR erictile dysfunction 30 tablet 025 2024 Discontinued Testim 50 MG/5GM (1%) gelIndications:E rectile dysfunction due to diseases classified elsewhere APPLY contents of TWO packets TO SKIN ONCE daily 300 g 025 2024 Discontinued oxyCODONE-acetam inophen (Percocet) 7.5-325 MG tabletIndication s:Chronic pain syndrome Take 1 tablet by mouth every 8 (eight) hours if needed for severe pain. 84 tablet 025 2024 Discontinued( Reorder (will not trigger notification to Pharmacy)) Active Problems Problem Noted Date Diagnosed Date Vitamin B12 deficiency 08/23/2024 Long-term current use of opiate analgesic 2024 Induratio penis plastica 04/01/2022 Benign hypertension 10/19/2020 Joints gout affected 10/19/2020 Chronic kidney disease 04/14/2017 Erectile dysfunction 04/14/2017 Gout 04/14/2017 Osteoarthritis of multiple joints 06/01/2014 Encounters Date Type Department Care Team Description 11/22/2024 10:00 AM EDT Office Visit [facility] [address] [place] [address] Camille Patel MD Stage 3a chronic kidney disease (CMS/HCC) (Primary Dx); Benign hypertension; Encounter for immunization; Immunization due 11/22/2024 Travel 11/21/2024 Telephone [facility] [address] [place] [address] Camille Patel MD 11/10/2024 11:00 AM EDT Clinical Support [facility] [address] [facility] REMY Romo [phone] Deya Barlow RN Chronic pain syndrome 11/10/2024 Orders Only [facility] [phone] Camille Patel MD Hyperkalemia (Primary Dx); Stage 3a chronic kidney disease ([facility]) 11/10/2024 Results Follow-Up [facility] [address] [facility] REMY Quiñonez [phone] Camille Patel MD Comprehensive Metabolic Panel, CBC auto differential, Lipid Panel, Standard, TSH W/Reflex to FT4 11/10/2024 Refill [facility] [place] [phone] Deya Barlow RN 11/10/2024 Travel 11/04/2024 Refill [facility] [address] [facility] [place] [address] Camille Patel MD Erectile dysfunction due to diseases classified elsewhere 11/02/2024 Refill [facility] [address] [facility] [place] [address] Deya Barlow RN Chronic pain syndrome 11/02/2024 Telephone [facility] [address] [facility] [place] [address] Camille Patel MD 10/17/2024 10:00 AM EDT Office Visit [facility] [address] [facility] [place] [address] Jourdan Patel Dental calculus (Primary Dx) 10/16/2024 [facility] [address] Camille Patel MD Other osteoarthritis involving multiple joints; Other osteoarthritis involving multiple joints 10/06/2024 Refill [facility] [address] [facility] [place] [address] Camille Patel MD Chronic pain syndrome 09/26/2024 Refill [facility] [address] [place] [address] Camille Patel MD Erectile dysfunction due to diseases classified elsewhere 09/19/2024 Refill [facility] [address] [place] [address] Camille Patel MD Erectile dysfunction due to diseases classified elsewhere 09/07/2024 Refill [facility] [address] [place] [address] Camille Patel MD Chronic pain syndrome 08/23/2024 10:15 AM EDT Office Visit [facility] [address] [place] [address] Camille Patel MD Benign hypertension (Primary Dx); Other osteoarthritis involving multiple joints; Vitamin B12 deficiency; Dietary counseling; Exercise counseling; Class 1 obesity due to excess calories with serious comorbidity and body mass index (BMI) of 30.0 to 30.9 in adult 08/23/2024 Travel 08/22/2024 Refill [facility] [address] [place] [address] Camille Patel MD Erectile dysfunction due to diseases classified elsewhere from Last 3 Months Immunizations Immunization Administration Dates Next Due INFLUENZA VACCINE QUADRIVALE NT RECOMBINANT PRESERVATIVE FREE RIV4 12/23/2019 Influenza High-dose Quadriva lent Preservative Free 12/25/2021 Influenza Quadrivalent Adjuvanted 12/05/2020 Influenza injectable quadriv alent preservative free 11/20/2022 Influenza, High Dose Seasona l, Preservative Free 11/22/2024,12/17/2023,02/09/2019 Moderna Covid-19 Vaccine 12+ 06/06/2020 Pneumococcal Conjugate PCV 13 01/08/2018 Pneumococcal Polysaccharide PPSV23 02/09/2019 Tdap 06/16/2022,02/14/2016 Zoster, live 02/14/2016 Social History Tobacco Use [...] Mass Index 29.76 11/22/2024 9:57 AM EDT Plan of Treatment Upcoming Encounters Date Type Department Care Team (Late st Contact Info) Description 03/09/2025 11:00 AM EST Clinical Support [facility] [address] [place] [address] Deya Barlow, COREEN [address] [place] [address] 04/21/2025 8:00 AM EST Office Visit [facility] [address] [place] [address] Jourdan Patel Health Maintenance Due Date Last Done Comments CT Colonography 1952 Colonoscopy 1952 FIT 1950 Sigmoidoscopy 1950 Zoster Vaccines (2 of 3) 04/10/2016 02/14/2016 FOBT 05/29/2024 05/30/2023 Dental Oral Exam 10/18/2024 04/19/2024, , 05/08/2023 COVID-19 Vaccine ( season) 2024 06/06/2020, 05/09/2020 Alcohol/Substance Use Screening 03/23/2025 03/23/2024 Depression Screening 03/23/2025 03/23/2024, 03/23/19 25 SDOH Screening 03/23/2025 03/23/2024 Dental Prophylaxis 04/20/2025 10/17/2024, 0 04/19/2024, 10/14/2023, Additional history exists Dental X-Ray: Bitewings 04/20/2025 04/19/19 25, 10/14/2023, 05/08/2023 Tobacco Screening 10/17/2025 10/17/2024 Dental X-Ray: Full Mouth 05/08/2026 05/08/2023 Colorectal Cancer Screening 05/29/2026 FIT DNA/Cologuard 05/29/2026 05/30/2023 RSV Patients and Patients Aged 60 years or older (1 - 1-dose 75+ series) 2027 Lipid Panel 11/10/2029 11/10/2024, 03/2 , 12/11/2021, Additional history exists DTaP/Tdap/Td Vaccines (3 - Td or Tdap) 06/16/2032 06/16/2022, 02/14/2016 Pneumococcal Vaccine: 50+ Years Completed 02/09/2019, 01/08/2018 Hepatitis C Screening Completed 05/20/2023 Influenza Vaccine Completed 11/22/2024, , 11/20/2022, Additional history exists HIB Vaccines Aged Out [...] patient's age to complete this topic Meningococcal B Vaccine Aged Out No l onger eligible based on patient's age to complete [...] Procedure Name Priority Date/Time Associated Diagnosis Comments POCT DAV-14 URINE DRUG SCREEN Routine 11/10/2024 10:32 AM EDT Chronic pain syndrome TSH W/REFLEX TO FT4 Routine 11/10/2024 1 0:16 AM EDT Benign hypertension LIPID PANEL, STANDARD Routine 11/10/2024 10:16 AM EDT Benign hypertension CBC WITH AUTO DIFFERENTIAL Routine 11/10/2024 10:16 AM EDT Benign hypertension COMPREHENSIVE METABOLIC PANEL Routine 11/10/2024 10:16 AM EDT Benign hypertension PROPHYLAXIS - ADULT Routine 10/17/2024 1 0:00 AM EDT CASE PRESENTATION, DETAILED AND EXTENSIVE TREATMENT PLANNING Routine 10/17/2024 10:00 AM EDT ORAL HYGIENE INSTRUCTIONS Routine 10/17/2024 10:00 AM EDT BITEWINGS - 4 RADIOGRAPHIC IMAGES Routine 04/19/2024 8:00 AM EST PERIODIC ORAL EVALUATION - ESTABLISHED PATIENT Routine 04/19/2024 8:00 AM EST LAB COLOGUARD COLON CANCER SCREEN Routine 05/30/2023 12:00 AM EDT Screening for colon cancer HEPATITIS C ANTIBODY Routine 05/20/2023 9:22 AM EDT Benign hypertension Other osteoarthritis involving multiple joints Other hyperlipidemia Screening for colon cancer INTRAORAL - COMPLETE SERIES OF RADIOGRAPHIC IMAGES Routine 05/08/2023 2:00 PM EST from Last 3 Months or Most Recently Relevant to Health Maintenance Results * (ABNORMAL) POCT DAV-14 Urine Drug Screen (11/10/2024 10:32 AM EDT) THC Negative Negative Cocaine Screen, Urine Negative Negative Opiate Screen, Urine Negative Negative Methamphetamine Screen Urine Negative Negative Amphetamine Screen, Urine Negative Negative Benzodiazepines Screen, Urine Negative Negative Barbiturate Screen, Urine Negative Negative Methadone Screen, Urine Negative Negative Buprenophine Screen, Urine Negative Negative TCA, Urine Negative Negative MDMA Urine Negative Negative ng/mL Oxycodone Screen, Urine Positive(A) Negative Phencyclidine (PCP), Urine Negative Negative Propoxyphene, Urine Negative Negative Fentanyl, Urine Negative Negative Urine Urine specimen obtained by clean catch procedure / Unknown 11/10/2024 10:32 AM EDT Narrative Deya Barlow RN - 11/10/2024 10:32 AM EDT Internal Pass Control Lot# [id number] Exp: 12-30-25 us Camille Patel MD POINT OF CARE TEST ENTER/ED IT ORDERABLES Final Result * TSH W/Reflex to FT4 (11/10/2024 10:16 AM EDT) TSH reflex Free T4 1.75 0.32 - 4.0 uIU/mL [facility] Blood Venous blood specimen / Unknown 11/10/2024 10:16 AM EDT 11/10/2024 2:14 PM EDT Camille Patel MD LAB BLOOD ORDERABLES Final Result [facility] [address] [place] [address] [phone] * (ABNORMAL) CBC auto differential (11/10/2024 10:16 AM EDT) White Blood Count 5.2 4.8 - 10.8 X10*3/uL [facility] Red Blood Count 4.82 4.60 - 5.80 X10*6/uL [facility] Hemoglobin 12.7(L) 14.0 - 18.0 g/dl [facility] Hematocrit 40.0(L) 42.0 - 52.0 % [facility] Mean Corpuscular Volume 83.0 80.0 - 98.0 fL [facility] Mean Corpuscular Hemoglobin 26.3(L) 27.0 - 33.0 pg [facility] Mean Corpuscular HGB Conc 31.8 31.0 - 36.0 g/dl [facility] Red Cell Distribution Width 14.2 11.0 - 16.0 % [facility] Platelet Count 225 160 - 400 X10*3/uL [facility] Mean Platelet Volume 11.2 9.4 - 12.4 fL [facility] Neutrophils Percent Auto 59.6 45 - 73 % [facility] Imm Gran Pct Auto 0.2 0.0 - 0.4 % [facility] Lymphocytes Percent Auto 26.6 20 - 40 % [facility] Monocytes Percent Auto 10.7 2 - 11 % [facility] Eosinophils Percent Auto 2.5 0 - 4 % [facility] Basophils Percent Auto 0.4 0 - 2 % [facility] NRBC Pct Auto 0.0 0.0 - 0.2 /100WBC [facility] Neutrophils Absolute Auto 3.1 2.0 - 8.3 x10*3/uL [facility] Imm Gran Abs Auto 0.01 0.00 - 0.03 X10*3/uL [facility] Lymphocytes Absolute Auto 1.4 1.2 - 4.9 X10*3/uL [facility] Monocytes Absolute Auto 0.6 0.1 - 1.2 X10*3/uL [facility] Eosinophils Absolute Auto 0.1 0.0 - 0.4 X10*3/uL [facility] Basophils Absolute Auto 0.0 0.0 - 0.2 X10*3/uL [facility] NRBC Abs Auto 0.000 0.0 - 0.012 X10*3/uL [facility] Blood Venous blood specimen / Unknown 11/10/2024 10:16 AM EDT 11/10/2024 2:14 PM EDT us Camille Patel MD LAB BLOOD ORDERABLES Final Result [facility] [address] [place] [address] [phone] * (ABNORMAL) Lipid Panel, Standard (11/10/2024 10:16 AM EDT) Triglycerides 73 <150 mg/dL [facility] Comment:Desirable Triglyceri de: less than 150 mg/dLBorderline High Triglyceride 150-199 mg/dLHigh Triglyceride: 200-499 mg/dLVery High Triglyceride: greater than or equal to 5OO mg/dL Cholesterol 175 <200 mg/dL [facility] Comment:Desirable Cholestero l: less than 200 mg/dLBorderline High Cholesterol: 200-239 mg/dLHigh Cholesterol: greater than 239 mg/dL LDL Cholesterol Calculated 118(H) <100 mg/dL [facility] Comment:Desirable LDL: less than 100 mg/dLNear Optimal/Above Optimal LDL: 110- 129 mg/dLBorderline High LDL: 130-159 mg/dLHigh LDL: 160-189 mg/dLVery High LDL: greater than or equal to 190 mg/dL HDL Cholesterol 43 >40 mg/dL [facility] Comment:Desirable HDL: great er than 40 mg/dL Note: This HDL assay may give artificially low results in patients with liver disease. Blood Venous blood specimen / Unknown 11/10/2024 10:16 AM EDT 11/10/2024 2:14 PM EDT us Camille Patel MD LAB BLOOD ORDERABLES Final Result [facility] [address] [place] [address] [phone] * (ABNORMAL) Comprehensive Metabolic Panel (11/10/2024 10:16 AM EDT) Sodium 138 135 - 145 mmol/L [facility] Potassium 5.3(H) 3.3 - 5.1 mmol/L [facility] Chloride 109(H) 96 - 108 mmol/L [facility] Carbon Dioxide 24 22 - 29 mmol/L [facility] Anion Gap 10(L) 12 - 20 [facility] Urea Nitrogen (BUN) 21(H) 9 - 16 mg/dL [facility] Creatinine, Serum 1.67(H) 0.5 - 1.4 mg/dL [facility] Estimated Glomerular Filt Rate 41 [facility] Comment:Chronic Kidney Disea se: Estimated GFR < 60 mL/min/1.85v4Vonyeg Kidney Disease: Estimated GFR < 15 mL/min/1.73m2 Glucose 100 60 - 115 mg/dL [facility] Calcium 8.6 8.4 - 10.2 mg/dL [facility] Bilirubin, Total 0.7 0.0 - 1.0 mg/dL [facility] Aspartate Amino Transferase 25 5 - 37 U/L [facility] Alanine Aminotransferase 11 0 - 40 U/L [facility] Total Protein 6.9 6.5 - 8.0 g/dL [facility] Albumin Level 4.3 3.5 - 5.0 g/dL [facility] Alkaline Phosphatase 95 39 - 117 U/L [facility] Blood Venous blood specimen / Unknown 11/10/2024 10:16 AM EDT 11/10/2024 2:14 PM EDT Camille Patel MD LAB BLOOD ORDERABLES Final Result [facility] [address] [place] [address] [phone] * Cologuard?? colon cancer screening (05/30/2023 12:00 AM EDT) Cologuard Result Negative Negative 06/06/19 24 1:09 AM EDT [facility] (CLIA #:[id number]) Comment: NEGATIVE TEST RESULT. A negative Cologuard result indicates a low likelihood that a colorectal cancer (CRC) or advanced adenoma (adenomatous polyps with more advanced pre-malignant features) is present. The chance that a person with a negative Cologuard test has a colorectal cancer is less than 1 in 1500 (negative predictive value >99.9%) or has an advanced adenoma is less than 5.3% (negative predictive value 94.7%). These data are based on a prospective cross-sectional study of 10,000 individuals at average risk for colorectal cancer who were screened with both Cologuard and colonoscopy. (Salbador Reilly al, N Engl J Med 2014;370(14):7888-9452) The normal value (reference range) for this assay is negative. COLOGUARD RE-SCREENING RECOMMENDATION: Periodic colorectal cancer screening is an important part of preventive healthcare for asymptomatic individuals at average risk for colorectal cancer. Following a negative Cologuard result, the [place] [employer] and U.S. Multi-Society Task Force screening guidelines recommend a Cologuard re-screening interval of 3 years. References: [place] [employer] Guideline for Colorectal Cancer Screening: https://www.cancer.org/cancer/mheic-rcsexe-fviqmh/zddvymybo-avysikvni-lfdxgwj/ac s-rec ommendations.html.; Alexis CARR, Tony MANCUSO, Chucky TRACEY, Colorectal Cancer Screening: Recommendations for Physicians and Patients from the U.S. Multi-Society Task Force on Colorectal Cancer Screening , Am J Gastroenterology 2017; 112:0487-7921. TEST DESCRIPTION: Composite algorithmic analysis of stool DNA-biomarkers with hemoglobin immunoassay. Quantitative values of individual biomarkers are not [...] screened with both Cologuard and colonoscopy. (Salbador Harris et al, N Engl J Med 2014;370(14):8270-5987.) Cologuard may produce a false negative or false positive result (no colorectal cancer or precancerous polyp present at colonoscopy follow up). A negative Cologuard test result does not guarantee the absence of CRC or advanced adenoma (pre-cancer). The current Cologuard screening interval is every 3 years. ([place] [employer] and U.S. Multi-Society Task Force). Cologuard performance data in a 10,000 patient pivotal study using colonoscopy as the reference method can be accessed at the following location: www.Shoppable.MotorwayBuddy/results. Additional description of the Cologuard test process, warnings and precautions can be found at www.imgfaverd.com. Stool specimen (specimen) 05/30/2023 06/02/2023 10:52 AM EDT us Camille Patel MD LAB MOLECULAR DIAGNOSTICS O RDERABLES Final Result [facility] (CLIA #:[id number]) [place] [address], * Hepatitis C Ab (05/20/2023 9:22 AM EDT) Hepatitis C Antibody Nonreactive Nonreactive [facility] Comment:Antibodies to HCV no t detected; does not exclude early acuteHCV infection. Blood Venous blood specimen / Unknown 05/20/2023 9:22 AM EDT 05/20/2023 1:02 PM EDT Camille Patel MD LAB BLOOD ORDERABLES Final Result [facility] [address] [place] [phone] from Last 3 Months or Most Recently Relevant to Health Maintenance Insurance [facility] MEDICARE REPLACEMENT DENTAL - [facility] PARTIAL (MEDICAID) D[facility]AL [facility] Care Teams Senior Integration Architect Relationship Specialty Start Date End Date Camille Patel MD [address] [place] [phone] PCP - General Internal Medicine 03/02/18
--- OUTSIDE RECORDS SUMMARY | 2024-11-22 13:13 | XMS_ITS | Encounter Summary ---
Author Organization [employer] [facility] Address [address] [place] [address] Care Team Providers Care Interviewing Clerk Name Role Phone Camille Patel MD Primary Care Provider [phone]- [phone] Encounter Details Date Type Department Care Team (Latest Contact Info) Description 04/30/[address] [facility] CONVERSIONS Dental, Provider, DDS Social History [...] 03/09/2025 11:00 AM EST Clinical Support [facility] [address] [place] [address] Deya Barlow, COREEN [address] [place] [address] 04/21/2025 8:00 AM EST Office Visit [facility] [address] [place] [address] Jourdan Patel documented as of this encounter Visit Diagnoses Not on filedocumented in this encounter Care Teams Interviewing Clerk Relationship Specialty Start Date End Date Camille Patel MD [address] [place] [address] PCP - General Internal Medicine 03/02/18 documented as of this encounter
--- OUTSIDE RECORDS SUMMARY | 2024-11-22 13:13 | XMS_ITS | Encounter Summary ---
Author Organization [employer] [facility] Address [address] [place] [address] Care Team Providers Care Nicker And Breaker Name Role Phone Camille Patel MD Primary Care Provider +1- [phone] Encounter Details Date Type Department Care Team (Latest Contact Info) Description 07/24/2021 Abstract [facility] CONVERSIONS Dental, Provider, DDS Social [...] [facility] [address] [place] [address] Deya Barlow, COREEN [address] [place] [address] 04/21/2025 8:00 AM EST Office Visit [facility] [address] [place] [address] Jourdan Patel documented as of this encounter Visit Diagnoses Not on filedocumented in this encounter Care Teams Nicker And Breaker Relationship Specialty Start Date End Date Camille Patel MD [address] [place] [address] PCP - General Internal Medicine 03/02/18 documented as of this encounter
--- OUTSIDE RECORDS SUMMARY | 2024-11-22 13:13 | XMS_ITS | Encounter Summary ---
Author Organization [employer] Address [address] [place] [address] 7 [place] [address] Care Team Providers Care Substance Abuse Technician Name Role Phone Camille Patel MD Primary Care Provider [phone] Encounter Details Date Type Department Care Team (Late st Contact Info) Description 05/20/2023 Orders Only [facility] MED & PEDS [address] [place], [place] [phone] Camille Patel MD 505 [place], [place] [phone] Other hyperlipidemia (Primary Dx) Social History Tobacco [...] Description 03/09/2025 11:00 AM EST Clinical Support [facility] MED & PEDS [address] [place] [address] Deya Barlow RN 505 [place] [address] 04/21/2025 8:00 AM EST Office Visit [facility] ADULT DENTAL 505 [place] [address] Jourdan Patel documented as of this encounter Procedures Procedure Name Priority Date/Time Associated Diagnosis Comments HEPATIC FUNCTION PANEL Routine 05/20/2023 9:22 AM EDT Other hyperlipidemia documented in this encounter Results * Hepatic Function Panel (05/20/2023 9:22 AM EDT) Bilirubin, Total 0.6 0.0 - 1.0 mg/dL [facility] Bilirubin, Direct 0.2 0.0 - 0.5 mg/dL [facility] Aspartate Amino Transferase 26 5 - 37 U/L [facility] Alanine Aminotransferase 27 0 - 40 U/L [facility] Total Protein 7.0 6.5 - 8.0 g/dL [facility] Albumin Level 4.2 3.5 - 5.0 g/dL [facility] Alkaline Phosphatase 75 39 - 117 U/L [facility] Blood Venous blood specimen / Unknown 05/20/2023 9:22 AM EDT 05/20/2023 12:57 PM EDT Camille Patel MD LAB BLOOD ORDERABLES Final Result [facility] [address] [place] [address] [phone] documented in this encounter Visit Diagnoses Diagnosis Other hyperlipidemia- Primary documented in this encounter Additional Health Concerns Assessment Noted Time PHQ-9 Depression Total Score: 4 04/01/19 23 11:39 AM EST documented as of this encounter Care Teams Substance Abuse Technician Relationship Specialty Start Date End Date Camille Patel MD [address] [place] [phone] PCP - General Internal Medicine 03/02/18 documented as of this encounter
--- OUTSIDE RECORDS SUMMARY | 2024-11-22 13:13 | XMS_ITS | Encounter Summary ---
Author Organization [employer] Address [address] [place] [address] 7t [place] [address] Care Team Providers Care Medical Tech Name Role Phone Camille Patel MD Primary Care Provider [phone] Encounter Details Date Type Department Care Team (Late st Contact Info) Description 03/13/2022 Orders Only [facility] MED & PEDS [address] [place] [address] Shania Johnson LPN Social History Tobacco Use [...] Description 03/09/2025 11:00 AM EST Clinical Support [facility] MED & PEDS [address] [place] [address] Deya Barlow, RN 505 [place] [address] 04/21/2025 8:00 AM EST Office Visit [facility] ADULT DENTAL [address] [place] [address] Jourdan Patel documented as of this encounter Procedures Procedure Name Priority Date/Time Associated Diagnosis Comments BASIC METABOLIC PANEL, FASTING Routine 09/16/2022 10:16 AM EDT CBC WITH AUTO DIFFERENTIAL Routine 09/16/2022 10:16 AM EDT PSA, TOTAL Routine 09/16/2022 10:16 AM EDT documented in this encounter Results * PSA,Total (09/16/2022 10:16 AM EDT) Prostate Specific Antigen 0.45 <0.05 - 4.0 ng/mL [facility] Comment:PSA methodology: Jesus Lazaro i ChemiluminescentMicroparticle Immunoassay (CMIA) 09/16/2022 10:1 6 AM EDT 09/16/2022 2:29 PM EDT us [facility] External Provider LAB BLO OD ORDERABLES Final Result [facility] [address] [place] [phone] * Basic Metabolic Panel, Fasting (09/16/2022 10:16 AM EDT) Sodium 139 135 - 145 mmol/L [facility] Potassium 4.6 3.3 - 5.1 mmol/L [facility] Chloride 105 96 - 108 mmol/L [facility] Carbon Dioxide 25 22 - 29 mmol/L [facility] Anion Gap 14 12 - 20 [facility] Urea Nitrogen (BUN) 16 9 - 16 mg/dL [facility] Creatinine, Serum 1.30 0.5 - 1.4 mg/dL [facility] Estimated Glomerular Filt Rate 55 [facility] Comment:NOTE: For -Am erican individuals, multiply the result by 1.210.Chronic Kidney Disease: Estimated GFR < 60 mL/min/1.18o7Inpaaj Kidney Disease: Estimated GFR < 15 mL/min/1.73m2 Glucose Fasting 80 60 - 99 mg/dL [facility] Calcium 9.3 8.4 - 10.2 mg/dL [facility] 09/16/2022 10:1 6 AM EDT 09/16/2022 2:29 PM EDT us [facility] External Provider LAB BLO OD ORDERABLES Final Result [facility] [address] [place] [address] [phone] * CBC auto differential (09/16/2022 10:16 AM EDT) White Blood Count 5.9 4.8 - 10.8 X10*3/uL [facility] Red Blood Count 5.08 4.60 - 5.80 X10*6/uL [facility] Hemoglobin 14.7 14.0 - 18.0 g/dl [facility] Hematocrit 45.1 42.0 - 52.0 % [facility] Mean Corpuscular Volume 88.8 80.0 - 98.0 fL [facility] Mean Corpuscular Hemoglobin 28.9 27.0 - 33.0 pg [facility] Mean Corpuscular HGB Conc 32.6 31.0 - 36.0 g/dl [facility] Red Cell Distribution Width 12.6 11.0 - 16.0 % [facility] Platelet Count 223 160 - 400 X10*3/uL [facility] Mean Platelet Volume 10.9 9.4 - 12.4 fL [facility] Neutrophils Percent Auto 60.9 45 - 73 % [facility] Imm Gran Pct Auto 0.2 0.0 - 0.4 % [facility] Lymphocytes Percent Auto 26.6 20 - 40 % [facility] Monocytes Percent Auto 8.4 2 - 11 % [facility] Eosinophils Percent Auto 3.2 0 - 4 % [facility] Basophils Percent Auto 0.7 0 - 2 % [facility] NRBC Pct Auto 0.0 0.0 - 0.2 /100WBC [facility] Neutrophils Absolute Auto 3.6 2.0 - 8.3 x10*3/uL [facility] Imm Gran Abs Auto 0.01 0.00 - 0.03 X10*3/uL [facility] Lymphocytes Absolute Auto 1.6 1.2 - 4.9 X10*3/uL [facility] Monocytes Absolute Auto 0.5 0.1 - 1.2 X10*3/uL [facility] Eosinophils Absolute Auto 0.2 0.0 - 0.4 X10*3/uL [facility] Basophils Absolute Auto 0.0 0.0 - 0.2 X10*3/uL [facility] NRBC Abs Auto 0.000 0.0 - 0.012 X10*3/uL [facility] 09/16/2022 10:1 6 AM EDT 09/16/2022 2:29 PM EDT us [facility] External Provider LAB BLO OD ORDERABLES Final Result Performing Organization Address City/State/[facility] Co de Phone Number [facility] [address] [place] [address] [phone] documented in this encounter Visit Diagnoses Not on filedocumented in this encounter Care Teams Medical Tech Relationship Specialty Start Date End Date Camille Patel MD [address] [place] [phone] PCP - General Internal Medicine 03/02/18 documented as of this encounter
--- OUTSIDE RECORDS SUMMARY | 2024-11-22 13:13 | XMS_ITS | Encounter Summary ---
Author Organization [employer] Address [address] [facility] 7t [place] [address] Care Team Providers Care Twenty One Dealer Name Role Phone Camille Patel MD Primary Care Provider [phone] Encounter Details Date Type Department Care Team (Late st Contact Info) Description 04/04/2024 Orders Only [facility] CH[facility] MED & PEDS [address] [place] [address] ProviderCelsa MD Social History Tobacco Use Types [...] housing situation today? I have isaiassara justin 03/23/[address] you [...] as of this encounter Miscellaneous Notes * Result Encounter Note - Camille Patel MD - 04/04/2024 1:01 PM EST Please inform Mr Shay Field that his kidney function has declined. Unsure if he has been using any NSAIDS: Naproxen, Ibuprofen,, Motrin or other NSAIDS. Has he been using the diclofenac gel regularly? If so I recommend to hold it off for now. documented in this encounter Plan of Treatment Upcoming Encounters Date Type Department Care Team (Late st Contact Info) Description 03/09/2025 11:00 AM EST Clinical Support [facility] MED & PEDS [address] [place] [address] Deya Barlow RN 505 [place] [address] 04/21/2025 8:00 AM EST Office Visit [facility] ADULT DENTAL [address] [place] [address] Jourdan Patel documented as of this encounter Procedures Procedure Name Priority Date/Time Associated Diagnosis Comments BASIC METABOLIC PANEL Routine 04/01/2024 1:01 PM EST documented in this encounter Results * Basic Metabolic Panel (04/01/2024 1:01 PM EST) Blood Venous blood specimen / Unknown us Historical Provider LAB BLOOD ORDERABLES Cande l Result documented in this encounter Visit Diagnoses Not on filedocumented in this encounter Additional Health Concerns Assessment Noted Time PHQ-9 Depression Total Score: 3 03/23/19 25 1:34 PM EST documented as of this encounter Care Teams Twenty One Dealer Relationship Specialty Start Date End Date Camille Patel MD [address] [place] [address] PCP - General Internal Medicine 03/02/18 documented as of this encounter
--- OUTSIDE RECORDS SUMMARY | 2024-11-22 13:13 | XMS_ITS | Encounter Summary ---
Author Organization [employer] Address [address] [facility] 7t [place] [address] Care Team Providers Care Psychiatric Nursing Aide Name Role Phone Camille Patel MD Primary Care Provider [phone] Encounter Details Date Type Department Care Team (Late st Contact Info) Description 03/30/2024 Telephone [facility] MEDICINE [address] [place] [address] Camille Patel MD 505 [place] [address] Social History Tobacco Use Types Packs/Day Years [...] Upcoming Encounters Date Type Department Care Team ([facility] st Contact Info) Description 03/09/2025 11:00 AM EST Clinical Support [facility] MED & PEDS [address] [place] [address] Deya Barlow RN [address] [place] [address] 04/21/2025 8:00 AM EST Office Visit [facility] ADULT DENTAL [address] [place] [address] Jourdan Patel documented as of this encounter Visit Diagnoses Not on filedocumented in this encounter Additional Health Concerns Assessment Noted Time PHQ-9 Depression Total Score: 3 03/23/19 25 1:34 PM EST documented as of this encounter Care Teams Psychiatric Nursing Aide Relationship Specialty Start Date End Date Camille Patel MD [address] [place] [address] PCP - General Internal Medicine 03/02/18 documented as of this encounter
--- OUTSIDE RECORDS SUMMARY | 2024-11-22 13:13 | XMS_ITS | Encounter Summary ---
Author Organization [employer] Address [address] [place] [address] Care Team Providers Care Supervisor Concrete Stone Fabricating Name Role Phone Camille Patel MD Primary Care Provider [phone] Reason for Referral * Consultation (Routine) - Canceled Specialty Diagnoses / Procedures Referred By Vitaly gray Referred To Contact Orthotics Diagnoses Other osteoarthritis involving multiple joints Camille Patel MD [address] [place] [address] Phone: tel: fax: Referral ID Status Reason Start Date Expiration Date Visits Requested Visits Authorized [id number] Canceled Specialty Services Required 06/30/2023 06/29/2024 1 1 Encounter Details Date Type Department Care Team ([facility] st Contact Info) Description 06/30/2023 Orders Only [facility] CHC MED & PEDS [address] [place] [address] Camille Patel MD [address] [place] [address] Other osteoarthritis involving multiple joints (Primary Dx) [...] [facility] [address] [place] [address] Deya Barlow RN [address] [place] [address] 04/21/2025 8:00 AM EST Office Visit [facility] ADULT DENTAL [address] [place] [address] Jourdan Patel Scheduled Referrals Name Type Priority Associated Diagnoses [...] documented as of this encounter Care Teams Supervisor [employer] Fab[employer]ating Relationship Specialty Start Date End Date Camille Patel MD [address] [place] [address] PCP - General Internal Medicine 03/02/18 documented as of this encounter
--- OUTSIDE RECORDS SUMMARY | 2024-11-22 13:13 | XMS_ITS | Encounter Summary ---
Author Organization [employer] Address [address] [place] [address] 7 [place] [address] Care Team Providers Care Painter And Decorator Apprentice Name Role Phone Camille Patel MD Primary Care Provider [phone] Reason for Visit * Reason Onset Date Comments medication 06/13/2022 Encounter Details Date Type Department Care Team ([facility] st Contact Info) Description 06/13/2022 Telephone [facility] ADULT DENTAL [address] [place] [address] Neymar Guerrero DDS [address] [place] [address] medication Social History Tobacco Use Types Packs/Day [...] Miscellaneous Notes * Telephone Encounter - Katherine Arguelless - 06/13/2022 9:34 AM EDT Patient called [...] 20 minutes apart prior to dental work. documented in this encounter Plan of Treatment Upcoming Encounters Date Type Department Care Team (Late st Contact Info) Description 03/09/2025 11:00 AM EST Clinical Support [facility] MED & PEDS [address] [place] [address] Deya Barlow, COREEN 505 [place] [address] 04/21/2025 8:00 AM EST Office Visit [facility] ADULT DENTAL [address] [place] [address] Jourdan Patel documented as of this encounter Visit Diagnoses Not on filedocumented in this encounter Additional Health Concerns Assessment Noted Time PHQ-9 Depression Total Score: 4 04/01/19 23 11:39 AM EST documented as of this encounter Care Teams Painter And Decorator Apprentice Relationship Specialty Start Date End Date Camille Patel MD [address] [place] [address] PCP - General Internal Medicine 03/02/18 documented as of this encounter
--- OUTSIDE RECORDS SUMMARY | 2024-11-22 13:13 | XMS_ITS | Encounter Summary ---
Author Organization [employer] Address [address] [place] [address] 7t [place] [address] Care Team Providers Care Investor Relations Specialist Name Role Phone Camille Patel MD Primary Care Provider [phone] Encounter Details Date Type Department Care Team (Latest Contact Info) Description 11/22/2024 Travel Social History Tobacco Use Types Packs/Day [...] 11:00 AM EST Clinical Support [facility] MED & PEDS [address] [place] [address] Deya Barlow RN [address] [place] [address] 04/21/2025 8:00 AM EST Office Visit [facility] ADULT DENTAL [address] [place] [address] Jourdan Patel documented as of this encounter Visit Diagnoses Not on filedocumented in this encounter Additional Health Concerns Assessment Noted Time PHQ-9 Depression Total Score: 3 03/23/19 25 1:34 PM EST documented as of this encounter Care Teams Investor Relations Specialist Relationship Specialty Start Date End Date Camille Patel MD [address] [place] [address] PCP - General Internal Medicine 03/02/18 documented as of this encounter
--- OUTSIDE RECORDS SUMMARY | 2024-11-22 13:13 | XMS_ITS | Encounter Summary ---
Author Organization [employer] Address [address] [facility] 7t [place] [address] Care Team Providers Care Street Supervisor Name Role Phone Camille Patel MD Primary Care Provider [phone] Encounter Details Date Type Department Care Team (Late st Contact Info) Description 09/10/2023 Orders Only [facility] CHC MED & PEDS [address] [place] [address] ProviderCelsa MD Social History Tobacco Use Types [...] [facility] MED & [facility]ED[facility] [address] [place] [address] Deya Barlow, RN [address] [place] [address] 04/21/2025 8:00 AM EST Office Visit [facility] ADULT DENTAL [address] [place] [address] Jourdan Patel documented as of this encounter [...] EDT) Anatomical Region Laterality Modality Nuclear Medicine Result [facility] Historical Provider IMG NM PROCEDURES Final R esult * Protein, urine, 24 hour (06/22/2023 8:47 AM EDT) Urine Urine specimen obtained by clean catch procedure / Unknown Result [facility] Historical Provider LAB URINE ORDERABLES Cande l Result * Immunoglobulins Panel, Serum (06/22/2023 8:47 AM EDT) Blood Venous blood specimen / Unknown Result [facility] Historical Provider LAB BLOOD ORDERABLES Cande l Result * Surgical Pathology (06/02/2023 8:49 AM EDT) us Historical Provider LAB PATHOLOGY ORDERABLES Final Result documented in this encounter Visit Diagnoses Not on filedocumented in this encounter Additional Health Concerns Assessment Noted Time PHQ-9 Depression Total Score: 4 04/01/19 23 11:39 AM EST documented as of this encounter Care Teams Street Supervisor Relationship Specialty Start Date End Date Camille Patel MD [address] [place] [address] PCP - General Internal Medicine 03/02/18 documented as of this encounter
--- OUTSIDE RECORDS SUMMARY | 2024-11-22 13:13 | XMS_ITS | Encounter Summary ---
Author Organization [employer] Address [address] [place] [address] 7 [place] [address] Care Team Providers Care Phlebotomy Tech Name Role Phone Camille Patel MD Primary Care Provider [phone] Encounter Details Date Type Department Care Team (Late st Contact Info) Description 11/10/2024 Orders Only [facility] CHC MED & PEDS [address] [place], [place] [phone] Camille Patel MD [address] [place], [place] [phone] Hyperkalemia (Primary Dx); Stage 3a chronic kidney disease (CMS/HCC) Social History Tobacco Use Types Packs/Day Years [...] Description 03/09/2025 11:00 AM EST Clinical Support [facility] MED & PEDS [address] [place] [address] Deya Barlow, COREEN [address] [place] [address] 04/21/2025 8:00 AM EST Office Visit [facility] ADULT DENTAL [address] [place] [address] Jourdan Patel Scheduled Orders Name Type Priority Associated Diagnoses Orde r Schedule Basic Metabolic Panel Lab Routine Stage 3a chronic kidney disease (CMS/HCC) Expected: 11/10/2024 (Approximate), Expires: 11/10/2025 documented as of this encounter Visit Diagnoses Diagnosis Hyperkalemia- Primary Hyperpotassemia Stage 3a chronic kidney disease (CMS/HCC) documented in this encounter Additional Health Concerns Assessment Noted Time PHQ-9 Depression Total Score: 3 03/23/19 25 1:34 PM EST documented as of this encounter Care Teams Phlebotomy Tech Relationship Specialty Start Date End Date Camille Patel MD [address] [place] [address] PCP - General Internal Medicine 03/02/18 documented as of this encounter
--- OUTSIDE RECORDS SUMMARY | 2024-11-22 13:13 | XMS_ITS | Encounter Summary ---
Author Organization [employer] Address [address] [place] [address] 7 [place] [address] Care Team Providers Care Historical Manuscripts Curator Name Role Phone Camille Patel MD Primary Care Provider [phone] Encounter Details Date Type Department Care Team ([facility] Contact Info) Description 10/27/2022 Orders Only [facility] MED & PEDS [address] [place] [address] Camille Patel MD [address] [place], [place] [phone] Cervical radiculopathy (Primary Dx) Social History Tobacco [...] Upcoming Encounters Date Type Department Care Team ([facility] Contact Info) Description 03/09/2025 11:00 AM EST Clinical Support [facility] MED & PEDS [address] [place] [address] Deya Barlow, RN [address] [place], [place] [phone] 04/21/2025 8:00 AM EST Office Visit [facility] ADULT DENTAL [address] [place] [address] Jourdan Patel documented as of this encounter Visit Diagnoses Diagnosis Cervical radiculopathy- Primary Brachial neuritis or radiculitis nos documented in this encounter Additional Health Concerns Assessment Noted Time PHQ-9 Depression Total Score: 4 04/01/19 23 11:39 AM EST documented as of this encounter Care Teams Historical Manuscripts Curator Relationship Specialty Start Date End Date Camille Patel MD [address] [place] [address] PCP - General Internal Medicine 03/02/18 documented as of this encounter
--- OUTSIDE RECORDS SUMMARY | 2024-11-22 13:13 | XMS_ITS | Encounter Summary ---
Author Organization [employer] Address [address] [place] [address] Care Team Providers Care Oxyacetylene Burner Name Role Phone Camille Patel MD Primary Care Provider [phone] Reason for Referral * Medications - Closed Specialty Diagnoses / Procedures Referred By Vitaly t Referred To Contact Diagnoses Erectile dysfunction due to diseases classified elsewhere Camille Patel MD [address] [place] [address] Phone: tel: fax: Referral ID Status Reason Start Date Expiration Date Visits Re quested Visits Authorized [id number] Closed 01/22/2024 01/21/2025 1 1 Encounter Details Date Type Department Care Team ([facility] st Contact Info) Description 01/22/2024 Orders Only [facility] CH[facility] MED & PEDS [address] [place] [address] Camille Patel MD [address] [place] [address] Erectile dysfunction due to diseases classified elsewhere [...] AM EST Clinical Support [facility] MED & PEDS [address] [place] [address] Deya Barlow RN 505 [place] [address] 04/21/2025 8:00 AM EST Office Visit [facility] ADULT DENTAL [address] [place] [address] Jourdan Patel documented as of this encounter Visit Diagnoses Diagnosis Erectile dysfunction due to diseases classified elsewhere- Primary documented in this encounter Additional Health Concerns Assessment Noted Time PHQ-9 Depression Total Score: 4 04/01/19 23 11:39 AM EST documented as of this encounter Care Teams Oxyacetylene Burner Relationship Specialty Start Date End Date Camille Patel MD [address] [place] [address] PCP - General Internal Medicine 03/02/18 documented as of this encounter
[2024-11-22 14:53] LABS: Anion Gap 10 (12-20); Blood Urea Nitrogen 25 mg/dL (9-16); Calcium 8.6 mg/dL (8.4-10.2); Carbon Dioxide 25 mmol/L (22-29); Chloride 108 mmol/L (96-108); Estimated Glomerular Filt Rate 42; Potassium 5.3 mmol/L (3.3-5.1); Sodium 138 mmol/L (135-145)
[2024-11-22 15:28] LABS: Folate 11.9 ng/mL (> or = 4.0); Vitamin B12 473 pg/mL (200-900)
== END 2024-11-22 10:47 | disposition home or self-care (01) ==
LOC: HO.CHCLDS 10:46
PROVIDERS: Visit Provider Internal Medicine
DX: N18.31 Chronic kidney disease, stage 3a (principal)
CPT/HCPCS: 36415; 80048; 82306; 82607; 82746